=== PATIENT | male | born 1945 | race Caucasian/White ===

== ENCOUNTER 2021-04-23 05:44 | Inpatient (IN) | payer MEDICARE ==
[2021-04-23 06:37] LABS: Hemoglobin 10.9 g/dL (13.5-17.5); Mean Corpuscular HGB CONC 34.2 g/dL (32.0-36.0); Mean Corpuscular Volume 87.9 fl (81.2-95.1); Mean Platelet Volume 9.6 fl (7.4-10.4); Platelet Count 88 10x3/uL (150-450); RBC Distribution Width 16.4 % (11.5-14.5); Red Blood Cell (RBC) Count 3.63 10x6/uL (4.32-5.72); White Blood Cell (WBC) Count 2.5 10x3/uL (3.5-10.5)
[2021-04-23 06:48] LABS: ALT (SGPT) 57 U/L (8-55); AST (SGOT) 147 U/L (5-34); Albumin 3.3 g/dL (3.4-4.8); Alkaline Phosphatase 42 U/L (40-110); Anion Gap 18 mmol/L (10-20); BUN (Urea Nitrogen) 32 mg/dL (8.4-25.7); Bilirubin, Total 0.9 mg/dL (0.2-1.2); Calc. Creatinine Clearance 0 mL/min (70-130); Calcium 8.9 mg/dL (7.8-10.44); Carbon Dioxide 23 mmol/L (23-31); Chloride 93 mmol/L (98-107); Globulin 2.9 g/dL (2.4-3.5); Glucose 95 mg/dL (83-110); Protein, Total 6.2 g/dL (5.8-8.1); Sodium 130 mmol/L (136-145)
[2021-04-23 06:56] LABS: Magnesium 1.4 mg/dL (1.6-2.6)
[2021-04-23 07:24] LABS: CKMB 1.9 ng/mL (0-6.6)
[2021-04-23 07:35] LABS: Band 1 % (5-11); Lymphocytes 19 % (21-51); Monocytes 9 % (0-10); Neutrophil 71 % (42-75)
[2021-04-23 07:36] LABS: Anisocytosis SLIGHT = 6-15 cells (100X) (0-5/hpf); Hypochromia SLIGHT = 6-15 cells (100X) (0-5/hpf); MDiff Complete? YES; Platelet Morphology Comment Appears Decreased
[2021-04-23] MEDS ORDERED: Magnesium 2 GM/50 ML BAG (IN WATER) ONE (08:55)
[2021-04-23] MEDS ORDERED: Polyethylene Glycol 3350 17 GM Packet PO PRN (09:20)
[2021-04-23] MEDS ORDERED: traMADol HCl 50 MG TAB PO PRN (09:20)
[2021-04-23] MEDS ORDERED: Acetaminophen 325 MG TAB PO PRN (09:22)
[2021-04-23] MEDS ORDERED: Lactated Ringer's 1,000 ML IV SCH (09:30)
[2021-04-23 09:34] LABS: Troponin I 2.126 ng/mL (< 0.028)
[2021-04-23 09:54] LABS: SARS-CoV-2 NAA Rapid Test DETECTED (NotDetected)
[2021-04-23 10:57] VITALS: BMI 32.0
[2021-04-23] MEDS ORDERED: Magnesium 2 GM/50 ML 2 GM in Premix Bag 1 BAG IVPB SCH (12:00)
[2021-04-23 12:39] LABS: Troponin I 1.945 ng/mL (< 0.028)
[2021-04-23] MEDS ORDERED: Pioglitazone HCl 15 MG TAB PO SCH (21:00)
[2021-04-23] MEDS: Levothyroxine Sodium 100 MCG TAB PO SCH (22:35)
[2021-04-23] MEDS: Fenofibrate Nanocrystallized 145 MG TAB PO SCH (22:35)
[2021-04-23] MEDS: Lisinopril 10 MG TAB PO SCH (22:36)
[2021-04-23] MEDS: Tamsulosin HCl 0.4 MG CAP PO SCH (22:36)
[2021-04-23] MEDS: Sodium Bicarbonate Tab 325 MG TAB PO SCH (22:36)
[2021-04-23] MEDS: Atorvastatin Calcium 20 MG TAB PO SCH (22:36)
[2021-04-23] MEDS: Apixaban 5 MG TAB PO SCH (22:36)
[2021-04-23] MEDS: Ondansetron PF 4 MG/2 ML Vial IVP PRN (23:10)
[2021-04-24 06:03] LABS: Anion Gap 14 mmol/L (10-20); BUN (Urea Nitrogen) 32 mg/dL (8.4-25.7); Calc. Creatinine Clearance 61 mL/min (70-130); Calcium 8.3 mg/dL (7.8-10.44); Carbon Dioxide 23 mmol/L (23-31); Chloride 97 mmol/L (98-107); Glucose 107 mg/dL (83-110); Magnesium 2.2 mg/dL (1.6-2.6); Potassium 3.3 mmol/L (3.5-5.1); Sodium 131 mmol/L (136-145)
[2021-04-24 06:32] LABS: #Monocytes 0.4 10x3/uL (0.0-1.1); #Neutrophils 2.1 10x3/uL (1.5-8.4); %Lymphocytes 23.5 % (18.0-47.0); %Monocytes 13.5 % (0.0-10.0); %Neutrophils 62.7 % (40.0-75.0); Hemoglobin 10.6 g/dL (13.5-17.5); Mean Corpuscular HGB CONC 34.5 g/dL (32.0-36.0); Mean Corpuscular Hemoglobin 30.3 pg (27.0-33.0); Mean Corpuscular Volume 87.7 fl (81.2-95.1); Mean Platelet Volume 9.9 fl (7.4-10.4); Platelet Count 95 10x3/uL (150-450); RBC Distribution Width 16.3 % (11.5-14.5); White Blood Cell (WBC) Count 3.3 10x3/uL (3.5-10.5)
[2021-04-24 06:38] LABS: Bilirubin Neg (Negative); Blood, Urine 250 (Negative); Clarity Cloudy (Clear); Glucose, Urine (Dipstick) Normal (Negative); Ketone, Urine Negative (Negative); Leukocyte 100 (Negative); Nitrite Positive (Negative); Protein, Urine (Dipstick) 30 mg/dl (Neg-Trace); Urobilinogen Normal mg/dL (Less than 2)
[2021-04-24 06:47] LABS: RBC/HPF Greater than 50 HPF (0-3)
[2021-04-24 06:49] LABS: Bacteria/HPF 4+ HPF (None Seen); Mucous/LPF 2+ LPF (<2+); Squamous Epithelial 0-3 HPF (0-3)
[2021-04-24] MEDS ORDERED: Loperamide HCl 2 MG CAP PO PRN (08:23)
[2021-04-24] MEDS ORDERED: Potassium Chloride 20 MEQ TAB PO SCH (08:30)
[2021-04-24] MEDS: cefTRIAXone\\ROCEPHIN 1 GM in Sodium Chloride 0.9% 100 ML IVPB SCH (09:21)
[2021-04-24] MEDS: Sodium Bicarbonate Tab 325 MG TAB PO SCH ×2 (09:22→21:48)
[2021-04-24] MEDS: Apixaban 5 MG TAB PO SCH ×2 (09:22→21:47)
[2021-04-24] MEDS: Cyanocobalamin (Vitamin B-12) 1,000 MCG TAB PO SCH (09:22)
[2021-04-24] MEDS: Atorvastatin Calcium 20 MG TAB PO SCH (21:47)
[2021-04-24] MEDS: Levothyroxine Sodium 100 MCG TAB PO SCH (21:47)
[2021-04-24] MEDS: Tamsulosin HCl 0.4 MG CAP PO SCH (21:47)
[2021-04-24] MEDS: Lisinopril 10 MG TAB PO SCH (21:47)
[2021-04-24] MEDS: Fenofibrate Nanocrystallized 145 MG TAB PO SCH (21:49)
[2021-04-25] MEDS ORDERED: Potassium Chloride 20 MEQ TAB PO SCH (08:00)
[2021-04-25 08:16] LABS: ALT (SGPT) 47 U/L (8-55); AST (SGOT) 110 U/L (5-34); Albumin 2.8 g/dL (3.4-4.8); Alkaline Phosphatase 37 U/L (40-110); Anion Gap 14 mmol/L (10-20); BUN (Urea Nitrogen) 38 mg/dL (8.4-25.7); Bilirubin, Total 0.5 mg/dL (0.2-1.2); Calc. Creatinine Clearance 56 mL/min (70-130); Calcium 8.3 mg/dL (7.8-10.44); Carbon Dioxide 23 mmol/L (23-31); Chloride 97 mmol/L (98-107); Globulin 2.5 g/dL (2.4-3.5); Glucose 90 mg/dL (83-110); Potassium 4.3 mmol/L (3.5-5.1); Protein, Total 5.3 g/dL (5.8-8.1); Sodium 130 mmol/L (136-145)
[2021-04-25 08:27] LABS: #Monocytes 0.6 10x3/uL (0.0-1.1); #Neutrophils 2.7 10x3/uL (1.5-8.4); %Basophils 0.2 % (0.0-2.0); %Eosinophils 0.7 % (0.0-6.0); %Lymphocytes 25.5 % (18.0-47.0); %Monocytes 13.1 % (0.0-10.0); %Neutrophils 59.8 % (40.0-75.0); Hemoglobin 10.5 g/dL (13.5-17.5); Mean Corpuscular Hemoglobin 30.1 pg (27.0-33.0); Mean Platelet Volume 9.9 fl (7.4-10.4); Platelet Count 91 10x3/uL (150-450); RBC Distribution Width 16.6 % (11.5-14.5); Red Blood Cell (RBC) Count 3.49 10x6/uL (4.32-5.72); White Blood Cell (WBC) Count 4.4 10x3/uL (3.5-10.5)
[2021-04-25] MEDS: Sodium Bicarbonate Tab 325 MG TAB PO SCH ×2 (08:51→21:21)
[2021-04-25] MEDS: Apixaban 5 MG TAB PO SCH ×2 (08:52→21:22)
[2021-04-25] MEDS: Cyanocobalamin (Vitamin B-12) 1,000 MCG TAB PO SCH (08:52)
[2021-04-25] MEDS: cefTRIAXone\\ROCEPHIN 1 GM in Sodium Chloride 0.9% 100 ML IVPB SCH (08:52)
[2021-04-25] MEDS: Sodium Chloride 0.9% 1,000 ML IV SCH (08:52)
[2021-04-25] MEDS: Lisinopril 10 MG TAB PO SCH (21:21)
[2021-04-25] MEDS: Tamsulosin HCl 0.4 MG CAP PO SCH (21:22)
[2021-04-25] MEDS: Fenofibrate Nanocrystallized 145 MG TAB PO SCH (21:22)
[2021-04-25] MEDS: Atorvastatin Calcium 20 MG TAB PO SCH (21:22)
[2021-04-25] MEDS: Levothyroxine Sodium 100 MCG TAB PO SCH (21:23)
[2021-04-26] MEDS: Sodium Chloride 0.9% 1,000 ML IV SCH (06:23)
[2021-04-26] MEDS: Cyanocobalamin (Vitamin B-12) 1,000 MCG TAB PO SCH (08:11)
[2021-04-26] MEDS: Apixaban 5 MG TAB PO SCH ×2 (08:11→21:29)
[2021-04-26] MEDS: Sodium Bicarbonate Tab 325 MG TAB PO SCH ×2 (08:11→21:29)
[2021-04-26] MEDS: cefTRIAXone\\ROCEPHIN 1 GM in Sodium Chloride 0.9% 100 ML IVPB SCH (08:12)
[2021-04-26 08:54] LABS: #Monocytes 0.4 10x3/uL (0.0-1.1); #Neutrophils 2.2 10x3/uL (1.5-8.4); %Eosinophils 1.1 % (0.0-6.0); %Lymphocytes 26.2 % (18.0-47.0); %Monocytes 10.5 % (0.0-10.0); %Neutrophils 61.9 % (40.0-75.0); Hemoglobin 9.9 g/dL (13.5-17.5); Mean Corpuscular HGB CONC 33.6 g/dL (32.0-36.0); Mean Corpuscular Hemoglobin 29.9 pg (27.0-33.0); Mean Corpuscular Volume 89.1 fl (81.2-95.1); Mean Platelet Volume 9.3 fl (7.4-10.4); Platelet Count 104 10x3/uL (150-450); RBC Distribution Width 16.8 % (11.5-14.5); Red Blood Cell (RBC) Count 3.31 10x6/uL (4.32-5.72); White Blood Cell (WBC) Count 3.6 10x3/uL (3.5-10.5)
[2021-04-26 09:05] LABS: Anion Gap 12 mmol/L (10-20); BUN (Urea Nitrogen) 28 mg/dL (8.4-25.7); Calc. Creatinine Clearance 68 mL/min (70-130); Calcium 8.2 mg/dL (7.8-10.44); Carbon Dioxide 22 mmol/L (23-31); Chloride 102 mmol/L (98-107); Glucose 91 mg/dL (83-110); Magnesium 1.7 mg/dL (1.6-2.6); Potassium 4.5 mmol/L (3.5-5.1); Sodium 131 mmol/L (136-145)
[2021-04-26] MEDS: Levothyroxine Sodium 100 MCG TAB PO SCH (21:29)
[2021-04-26] MEDS: Atorvastatin Calcium 20 MG TAB PO SCH (21:29)
[2021-04-26] MEDS: Tamsulosin HCl 0.4 MG CAP PO SCH (21:29)
[2021-04-26] MEDS: Lisinopril 5 MG TAB PO SCH (21:30)
[2021-04-26] MEDS: Fenofibrate Nanocrystallized 145 MG TAB PO SCH (21:30)
[2021-04-27 05:10] LABS: #Eosinphils 0.1 10x3/uL (0.0-0.5); #Monocytes 0.4 10x3/uL (0.0-1.1); %Basophils 0.3 % (0.0-2.0); %Eosinophils 2.4 % (0.0-6.0); %Lymphocytes 26.8 % (18.0-47.0); %Monocytes 10.4 % (0.0-10.0); %Neutrophils 59.5 % (40.0-75.0); Hemoglobin 10.9 g/dL (13.5-17.5); Mean Corpuscular HGB CONC 34.4 g/dL (32.0-36.0); Mean Corpuscular Hemoglobin 29.8 pg (27.0-33.0); Mean Corpuscular Volume 86.6 fl (81.2-95.1); Mean Platelet Volume 9.7 fl (7.4-10.4); Platelet Count 125 10x3/uL (150-450); RBC Distribution Width 16.6 % (11.5-14.5); Red Blood Cell (RBC) Count 3.66 10x6/uL (4.32-5.72); White Blood Cell (WBC) Count 3.4 10x3/uL (3.5-10.5)
[2021-04-27 05:13] LABS: Anion Gap 14 mmol/L (10-20); BUN (Urea Nitrogen) 19 mg/dL (8.4-25.7); Calc. Creatinine Clearance 78 mL/min (70-130); Calcium 8.6 mg/dL (7.8-10.44); Carbon Dioxide 21 mmol/L (23-31); Chloride 104 mmol/L (98-107); Glucose 93 mg/dL (83-110); Magnesium 1.6 mg/dL (1.6-2.6); Potassium 5.2 mmol/L (3.5-5.1); Sodium 134 mmol/L (136-145)
[2021-04-27] MEDS ORDERED: Sodium Chloride 0.9% 500 ML IV SCH (07:30)
[2021-04-27] MEDS: Sodium Bicarbonate Tab 325 MG TAB PO SCH ×2 (07:46→21:53)
[2021-04-27] MEDS: cefTRIAXone\\ROCEPHIN 1 GM in Sodium Chloride 0.9% 100 ML IVPB SCH (07:47)
[2021-04-27] MEDS: Apixaban 5 MG TAB PO SCH ×2 (07:47→21:53)
[2021-04-27] MEDS: Cyanocobalamin (Vitamin B-12) 1,000 MCG TAB PO SCH (07:47)
[2021-04-27 08:36] LABS: Potassium 4.4 mmol/L (3.5-5.1)
[2021-04-27] MEDS: Ondansetron PF 4 MG/2 ML Vial IVP PRN (18:05)
[2021-04-27] MEDS: Metoprolol Tartrate 5 MG/5 ML VIAL IVP PRN (18:05)
[2021-04-27 19:10] LABS: Anion Gap 15 mmol/L (10-20); BUN (Urea Nitrogen) 17 mg/dL (8.4-25.7); Calc. Creatinine Clearance 86 mL/min (70-130); Calcium 8.3 mg/dL (7.8-10.44); Carbon Dioxide 18 mmol/L (23-31); Chloride 101 mmol/L (98-107); Glucose 98 mg/dL (83-110); Potassium 5.6 mmol/L (3.5-5.1); Sodium 128 mmol/L (136-145)
[2021-04-27] MEDS: Atorvastatin Calcium 20 MG TAB PO SCH (21:53)
[2021-04-27] MEDS: Fenofibrate Nanocrystallized 145 MG TAB PO SCH (21:53)
[2021-04-27] MEDS: Tamsulosin HCl 0.4 MG CAP PO SCH (21:53)
[2021-04-27] MEDS: Lisinopril 5 MG TAB PO SCH (21:55)
[2021-04-28] MEDS: Metoprolol Tartrate 5 MG/5 ML VIAL IVP PRN ×3 (00:54→15:29)
[2021-04-28] MEDS: Levothyroxine Sodium 100 MCG TAB PO SCH ×2 (01:00→05:38)
[2021-04-28 06:46] LABS: #Eosinphils 0.1 10x3/uL (0.0-0.5); #Monocytes 0.5 10x3/uL (0.0-1.1); #Neutrophils 2.5 10x3/uL (1.5-8.4); %Basophils 0.2 % (0.0-2.0); %Eosinophils 1.2 % (0.0-6.0); %Lymphocytes 26.3 % (18.0-47.0); %Monocytes 12.9 % (0.0-10.0); %Neutrophils 58.9 % (40.0-75.0); Hemoglobin 11.1 g/dL (13.5-17.5); Mean Corpuscular HGB CONC 34.6 g/dL (32.0-36.0); Mean Corpuscular Hemoglobin 29.8 pg (27.0-33.0); Mean Corpuscular Volume 86.1 fl (81.2-95.1); Mean Platelet Volume 9.3 fl (7.4-10.4); Platelet Count 148 10x3/uL (150-450); RBC Distribution Width 16.1 % (11.5-14.5); Red Blood Cell (RBC) Count 3.73 10x6/uL (4.32-5.72); White Blood Cell (WBC) Count 4.2 10x3/uL (3.5-10.5)
[2021-04-28 06:48] LABS: Anion Gap 15 mmol/L (10-20); BUN (Urea Nitrogen) 17 mg/dL (8.4-25.7); Calc. Creatinine Clearance 76 mL/min (70-130); Calcium 8.3 mg/dL (7.8-10.44); Carbon Dioxide 19 mmol/L (23-31); Chloride 100 mmol/L (98-107); Glucose 94 mg/dL (83-110); Magnesium 1.4 mg/dL (1.6-2.6); Potassium 4.5 mmol/L (3.5-5.1); Sodium 129 mmol/L (136-145)
[2021-04-28] MEDS: Sodium Bicarbonate Tab 325 MG TAB PO SCH ×2 (08:09→22:00)
[2021-04-28] MEDS: Cyanocobalamin (Vitamin B-12) 1,000 MCG TAB PO SCH (08:09)
[2021-04-28] MEDS: Apixaban 5 MG TAB PO SCH ×2 (08:10→22:15)
[2021-04-28] MEDS: cefTRIAXone\\ROCEPHIN 1 GM in Sodium Chloride 0.9% 100 ML IVPB SCH (08:10)
[2021-04-28 12:25] LABS: Hemoglobin 11.7 g/dL (13.5-17.5)
[2021-04-28] MEDS ORDERED: Magnesium 2 GM/50 ML 2 GM in Premix Bag 1 BAG IVPB SCH (14:45)
[2021-04-28] MEDS: Sodium Chloride 0.9% 1,000 ML IV SCH (14:56)
[2021-04-28] MEDS: Lisinopril 5 MG TAB PO SCH (22:00)
[2021-04-28] MEDS: Tamsulosin HCl 0.4 MG CAP PO SCH (22:00)
[2021-04-28] MEDS: Atorvastatin Calcium 20 MG TAB PO SCH (22:00)
[2021-04-28] MEDS: Fenofibrate Nanocrystallized 145 MG TAB PO SCH (22:00)
[2021-04-29] MEDS: Sodium Chloride 0.9% 1,000 ML IV SCH ×2 (04:50→17:14)
[2021-04-29 05:43] LABS: #Eosinphils 0.1 10x3/uL (0.0-0.5); #Monocytes 0.5 10x3/uL (0.0-1.1); #Neutrophils 2.6 10x3/uL (1.5-8.4); %Basophils 0.2 % (0.0-2.0); %Eosinophils 1.2 % (0.0-6.0); %Lymphocytes 22.9 % (18.0-47.0); %Monocytes 12.8 % (0.0-10.0); Hemoglobin 10.8 g/dL (13.5-17.5); Mean Corpuscular Hemoglobin 29.9 pg (27.0-33.0); Mean Corpuscular Volume 85.6 fl (81.2-95.1); Mean Platelet Volume 9.2 fl (7.4-10.4); Platelet Count 157 10x3/uL (150-450); RBC Distribution Width 16.1 % (11.5-14.5); Red Blood Cell (RBC) Count 3.61 10x6/uL (4.32-5.72); White Blood Cell (WBC) Count 4.2 10x3/uL (3.5-10.5)
[2021-04-29 06:03] LABS: Anion Gap 13 mmol/L (10-20); BUN (Urea Nitrogen) 16 mg/dL (8.4-25.7); Calc. Creatinine Clearance 74 mL/min (70-130); Calcium 8.1 mg/dL (7.8-10.44); Carbon Dioxide 20 mmol/L (23-31); Chloride 100 mmol/L (98-107); Glucose 91 mg/dL (83-110); Potassium 4.6 mmol/L (3.5-5.1); Sodium 128 mmol/L (136-145)
[2021-04-29] MEDS: Levothyroxine Sodium 100 MCG TAB PO SCH (06:34)
[2021-04-29] MEDS: Cyanocobalamin (Vitamin B-12) 1,000 MCG TAB PO SCH (08:48)
[2021-04-29] MEDS: Sodium Bicarbonate Tab 325 MG TAB PO SCH ×2 (08:48→21:18)
[2021-04-29] MEDS: cefTRIAXone\\ROCEPHIN 1 GM in Sodium Chloride 0.9% 100 ML IVPB SCH (08:59)
[2021-04-29] MEDS: Apixaban 5 MG TAB PO SCH ×2 (09:43→21:22)
[2021-04-29] MEDS: Fenofibrate Nanocrystallized 145 MG TAB PO SCH (20:20)
[2021-04-29] MEDS: Tamsulosin HCl 0.4 MG CAP PO SCH (21:17)
[2021-04-29] MEDS: Atorvastatin Calcium 20 MG TAB PO SCH (21:17)
[2021-04-29] MEDS: Lisinopril 5 MG TAB PO SCH (21:20)
[2021-04-30] MEDS: Metoprolol Tartrate 5 MG/5 ML VIAL IVP PRN (04:53)
[2021-04-30] MEDS: Levothyroxine Sodium 100 MCG TAB PO SCH (04:54)
[2021-04-30] MEDS: Sodium Chloride 0.9% 1,000 ML IV SCH (04:54)
[2021-04-30 07:02] LABS: #Eosinphils 0.1 10x3/uL (0.0-0.5); #Monocytes 0.6 10x3/uL (0.0-1.1); #Neutrophils 2.9 10x3/uL (1.5-8.4); %Basophils 0.2 % (0.0-2.0); %Eosinophils 2.4 % (0.0-6.0); %Lymphocytes 19.9 % (18.0-47.0); %Monocytes 13.5 % (0.0-10.0); %Neutrophils 62.9 % (40.0-75.0); Hemoglobin 10.5 g/dL (13.5-17.5); Mean Corpuscular HGB CONC 34.7 g/dL (32.0-36.0); Mean Corpuscular Hemoglobin 29.7 pg (27.0-33.0); Mean Corpuscular Volume 85.8 fl (81.2-95.1); Platelet Count 178 10x3/uL (150-450); RBC Distribution Width 16.5 % (11.5-14.5); Red Blood Cell (RBC) Count 3.53 10x6/uL (4.32-5.72); White Blood Cell (WBC) Count 4.6 10x3/uL (3.5-10.5)
[2021-04-30 07:05] LABS: Anion Gap 13 mmol/L (10-20); BUN (Urea Nitrogen) 15 mg/dL (8.4-25.7); Calc. Creatinine Clearance 81 mL/min (70-130); Calcium 8.1 mg/dL (7.8-10.44); Carbon Dioxide 20 mmol/L (23-31); Chloride 103 mmol/L (98-107); Glucose 89 mg/dL (83-110); Potassium 4.7 mmol/L (3.5-5.1); Sodium 131 mmol/L (136-145)
[2021-04-30] MEDS: Apixaban 5 MG TAB PO SCH (08:32)
[2021-04-30] MEDS: Sodium Bicarbonate Tab 325 MG TAB PO SCH ×2 (08:33→20:20)
[2021-04-30] MEDS: Cyanocobalamin (Vitamin B-12) 1,000 MCG TAB PO SCH (08:33)
[2021-04-30] MEDS: cefTRIAXone\\ROCEPHIN 1 GM in Sodium Chloride 0.9% 100 ML IVPB SCH (08:39)
[2021-04-30] MEDS: Atorvastatin Calcium 20 MG TAB PO SCH (20:19)
[2021-04-30] MEDS: Tamsulosin HCl 0.4 MG CAP PO SCH (20:20)
[2021-04-30] MEDS: Fenofibrate Nanocrystallized 145 MG TAB PO SCH (20:21)
[2021-04-30] MEDS ORDERED: Apixaban 2.5 MG TAB PO SCH (21:00)
[2021-05-01 06:11] LABS: #Eosinphils 0.1 10x3/uL (0.0-0.5); #Monocytes 0.6 10x3/uL (0.0-1.1); #Neutrophils 2.6 10x3/uL (1.5-8.4); %Basophils 0.2 % (0.0-2.0); %Eosinophils 2.9 % (0.0-6.0); %Lymphocytes 24.4 % (18.0-47.0); %Monocytes 13.5 % (0.0-10.0); %Neutrophils 57.7 % (40.0-75.0); Hemoglobin 10.7 g/dL (13.5-17.5); Mean Corpuscular HGB CONC 34.9 g/dL (32.0-36.0); Mean Corpuscular Hemoglobin 29.9 pg (27.0-33.0); Mean Corpuscular Volume 85.8 fl (81.2-95.1); Mean Platelet Volume 8.9 fl (7.4-10.4); Platelet Count 199 10x3/uL (150-450); Red Blood Cell (RBC) Count 3.58 10x6/uL (4.32-5.72); White Blood Cell (WBC) Count 4.5 10x3/uL (3.5-10.5)
[2021-05-01 06:18] LABS: Anion Gap 15 mmol/L (10-20); BUN (Urea Nitrogen) 12 mg/dL (8.4-25.7); Calc. Creatinine Clearance 93 mL/min (70-130); Calcium 8.2 mg/dL (7.8-10.44); Carbon Dioxide 18 mmol/L (23-31); Chloride 103 mmol/L (98-107); Glucose 83 mg/dL (83-110); Potassium 4.4 mmol/L (3.5-5.1); Sodium 132 mmol/L (136-145)
[2021-05-01] MEDS: Levothyroxine Sodium 100 MCG TAB PO SCH (06:50)
[2021-05-01] MEDS: Sodium Chloride 0.9% 1,000 ML IV SCH ×2 (06:50→17:19)
[2021-05-01] MEDS ORDERED: Senokot 8.6 MG TAB PO PRN (07:44)
[2021-05-01] MEDS: Sodium Bicarbonate Tab 325 MG TAB PO SCH ×2 (08:21→21:39)
[2021-05-01] MEDS: Cyanocobalamin (Vitamin B-12) 1,000 MCG TAB PO SCH (08:21)
[2021-05-01] MEDS: Atorvastatin Calcium 20 MG TAB PO SCH (21:39)
[2021-05-01] MEDS: Tamsulosin HCl 0.4 MG CAP PO SCH (21:39)
[2021-05-01] MEDS: Fenofibrate Nanocrystallized 145 MG TAB PO SCH (21:40)
[2021-05-01] MEDS: Metoprolol Tartrate 5 MG/5 ML VIAL IVP PRN (21:40)
[2021-05-02 04:21] LABS: Anion Gap 14 mmol/L (10-20); BUN (Urea Nitrogen) 13 mg/dL (8.4-25.7); Calc. Creatinine Clearance 95 mL/min (70-130); Calcium 8.1 mg/dL (7.8-10.44); Carbon Dioxide 17 mmol/L (23-31); Chloride 103 mmol/L (98-107); Glucose 104 mg/dL (83-110); Potassium 4.5 mmol/L (3.5-5.1); Sodium 129 mmol/L (136-145)
[2021-05-02] MEDS: Sodium Chloride 0.9% 1,000 ML IV SCH (05:20)
[2021-05-02] MEDS: Levothyroxine Sodium 100 MCG TAB PO SCH (05:20)
[2021-05-02] MEDS: Metoprolol Tartrate 5 MG/5 ML VIAL IVP PRN ×3 (06:42→18:33)
[2021-05-02 09:16] LABS: #Eosinphils 0.1 10x3/uL (0.0-0.5); #Monocytes 0.6 10x3/uL (0.0-1.1); #Neutrophils 3.3 10x3/uL (1.5-8.4); %Basophils 0.2 % (0.0-2.0); %Eosinophils 1.6 % (0.0-6.0); %Lymphocytes 18.4 % (18.0-47.0); %Monocytes 11.7 % (0.0-10.0); %Neutrophils 67.1 % (40.0-75.0); Hemoglobin 10.7 g/dL (13.5-17.5); Mean Corpuscular Hemoglobin 29.3 pg (27.0-33.0); Mean Corpuscular Volume 86.3 fl (81.2-95.1); Mean Platelet Volume 8.9 fl (7.4-10.4); Platelet Count 227 10x3/uL (150-450); Red Blood Cell (RBC) Count 3.65 10x6/uL (4.32-5.72)
[2021-05-02] MEDS: Polyethylene Glycol 3350 17 GM Packet PO SCH (09:55)
[2021-05-02] MEDS: Finasteride 5 MG TAB PO SCH (09:55)
[2021-05-02] MEDS: Sodium Bicarbonate Tab 325 MG TAB PO SCH ×2 (09:55→22:08)
[2021-05-02] MEDS: Cyanocobalamin (Vitamin B-12) 1,000 MCG TAB PO SCH (09:55)
[2021-05-02] MEDS: Fenofibrate Nanocrystallized 145 MG TAB PO SCH (22:07)
[2021-05-02] MEDS: Atorvastatin Calcium 20 MG TAB PO SCH (22:07)
[2021-05-02] MEDS: Tamsulosin HCl 0.4 MG CAP PO SCH (22:08)
[2021-05-02 23:14] LABS: Creatinine, Urine 56.54 mg/dL (63-166)
[2021-05-03 04:30] LABS: #Eosinphils 0.1 10x3/uL (0.0-0.5); #Monocytes 0.6 10x3/uL (0.0-1.1); #Neutrophils 3.8 10x3/uL (1.5-8.4); %Basophils 0.4 % (0.0-2.0); %Eosinophils 2.1 % (0.0-6.0); %Lymphocytes 18.5 % (18.0-47.0); %Monocytes 11.1 % (0.0-10.0); %Neutrophils 66.8 % (40.0-75.0); Anion Gap 14 mmol/L (10-20); BUN (Urea Nitrogen) 13 mg/dL (8.4-25.7); Calc. Creatinine Clearance 92 mL/min (70-130); Calcium 8.5 mg/dL (7.8-10.44); Carbon Dioxide 18 mmol/L (23-31); Chloride 99 mmol/L (98-107); Glucose 89 mg/dL (83-110); Hemoglobin 11.3 g/dL (13.5-17.5); Mean Corpuscular HGB CONC 34.8 g/dL (32.0-36.0); Mean Corpuscular Hemoglobin 29.6 pg (27.0-33.0); Mean Corpuscular Volume 85.1 fl (81.2-95.1); Mean Platelet Volume 9.1 fl (7.4-10.4); Platelet Count 246 10x3/uL (150-450); Red Blood Cell (RBC) Count 3.82 10x6/uL (4.32-5.72); Sodium 127 mmol/L (136-145); White Blood Cell (WBC) Count 5.7 10x3/uL (3.5-10.5)
[2021-05-03] MEDS: Levothyroxine Sodium 100 MCG TAB PO SCH (05:25)
[2021-05-03] MEDS: Metoprolol Tartrate 5 MG/5 ML VIAL IVP PRN (05:25)
[2021-05-03 08:40] LABS: Magnesium 1.3 mg/dL (1.6-2.6)
[2021-05-03] MEDS: Flecainide 50 MG TAB PO SCH ×2 (09:40→22:18)
[2021-05-03] MEDS: Cyanocobalamin (Vitamin B-12) 1,000 MCG TAB PO SCH (09:40)
[2021-05-03] MEDS: Sodium Bicarbonate Tab 325 MG TAB PO SCH ×2 (09:40→22:19)
[2021-05-03] MEDS: Finasteride 5 MG TAB PO SCH (09:40)
[2021-05-03] MEDS: Polyethylene Glycol 3350 17 GM Packet PO SCH (09:41)
[2021-05-03] MEDS: Apixaban 2.5 MG TAB PO SCH ×2 (09:41→22:19)
[2021-05-03] MEDS: Magnesium 2 GM/50 ML 2 GM in Premix Bag 1 BAG IVPB SCH ×2 (13:27→16:22)
[2021-05-03] MEDS ORDERED: Magnesium Sulfate 2 GM in Sodium Chloride 0.9% 100 ML IVPB SCH (19:00)
[2021-05-03] MEDS ORDERED: Sodium Chloride 1 GM TAB PO SCH (21:00)
[2021-05-03] MEDS: Fenofibrate Nanocrystallized 145 MG TAB PO SCH (22:19)
[2021-05-03] MEDS: Atorvastatin Calcium 20 MG TAB PO SCH (22:19)
[2021-05-03] MEDS: Tamsulosin HCl 0.4 MG CAP PO SCH (22:19)
[2021-05-04 04:35] LABS: Albumin 2.7 g/dL (3.4-4.8); Anion Gap 13 mmol/L (10-20); BUN (Urea Nitrogen) 17 mg/dL (8.4-25.7); BUN/Creatinine Ratio 16.04; Calc. Creatinine Clearance 81 mL/min (70-130); Calcium 8.5 mg/dL (7.8-10.44); Carbon Dioxide 18 mmol/L (23-31); Chloride 98 mmol/L (98-107); Glucose 109 mg/dL (83-110); Magnesium 1.9 mg/dL (1.6-2.6); Sodium 125 mmol/L (136-145)
[2021-05-04 04:42] LABS: Phosphorus 1.6 mg/dL (2.3-4.7)
[2021-05-04] MEDS: Levothyroxine Sodium 100 MCG TAB PO SCH (05:24)
[2021-05-04] MEDS: Apixaban 2.5 MG TAB PO SCH ×2 (10:29→21:57)
[2021-05-04] MEDS: Sodium Bicarbonate Tab 325 MG TAB PO SCH ×4 (10:29→21:58)
[2021-05-04] MEDS: Cyanocobalamin (Vitamin B-12) 1,000 MCG TAB PO SCH (10:30)
[2021-05-04] MEDS: Flecainide 50 MG TAB PO SCH ×2 (10:30→21:57)
[2021-05-04] MEDS: PHOS-NAK 1 PKT PACK PO SCH ×4 (10:30→21:58)
[2021-05-04] MEDS: Polyethylene Glycol 3350 17 GM Packet PO SCH (10:30)
[2021-05-04] MEDS: Sodium Chloride 1 GM TAB PO SCH ×4 (10:30→22:01)
[2021-05-04] MEDS: Finasteride 5 MG TAB PO SCH (10:30)
[2021-05-04 15:38] LABS: Anion Gap 12 mmol/L (10-20); BUN (Urea Nitrogen) 17 mg/dL (8.4-25.7); Calc. Creatinine Clearance 75 mL/min (70-130); Calcium 8.7 mg/dL (7.8-10.44); Carbon Dioxide 19 mmol/L (23-31); Chloride 99 mmol/L (98-107); Glucose 118 mg/dL (83-110); Potassium 4.4 mmol/L (3.5-5.1); Sodium 126 mmol/L (136-145)
[2021-05-04] MEDS: Atorvastatin Calcium 20 MG TAB PO SCH (21:57)
[2021-05-04] MEDS: Tamsulosin HCl 0.4 MG CAP PO SCH (21:58)
[2021-05-04] MEDS: Fenofibrate Nanocrystallized 145 MG TAB PO SCH (22:00)
[2021-05-05] MEDS: Levothyroxine Sodium 100 MCG TAB PO SCH (05:29)
[2021-05-05 07:57] LABS: Albumin 2.7 g/dL (3.4-4.8); Anion Gap 15 mmol/L (10-20); BUN (Urea Nitrogen) 16 mg/dL (8.4-25.7); BUN/Creatinine Ratio 15.53; Calc. Creatinine Clearance 84 mL/min (70-130); Calcium 8.7 mg/dL (7.8-10.44); Carbon Dioxide 20 mmol/L (23-31); Chloride 99 mmol/L (98-107); Glucose 85 mg/dL (83-110); Magnesium 1.6 mg/dL (1.6-2.6); Phosphorus 2.2 mg/dL (2.3-4.7); Potassium 4.5 mmol/L (3.5-5.1); Sodium 129 mmol/L (136-145)
[2021-05-05] MEDS: Sodium Bicarbonate Tab 325 MG TAB PO SCH ×3 (08:39→20:39)
[2021-05-05] MEDS: Folic Acid 1 MG TAB PO SCH (08:40)
[2021-05-05] MEDS: Sodium Chloride 1 GM TAB PO SCH ×3 (08:40→20:39)
[2021-05-05] MEDS: Flecainide 50 MG TAB PO SCH ×2 (08:40→20:39)
[2021-05-05] MEDS: Polyethylene Glycol 3350 17 GM Packet PO SCH (08:40)
[2021-05-05] MEDS: Apixaban 2.5 MG TAB PO SCH ×2 (08:40→20:39)
[2021-05-05] MEDS: Cyanocobalamin (Vitamin B-12) 1,000 MCG TAB PO SCH (08:40)
[2021-05-05] MEDS: Finasteride 5 MG TAB PO SCH (08:46)
[2021-05-05] MEDS ORDERED: Magnesium Sulfate 4 GM in Sodium Chloride 0.9% 250 ML 250 ML IVPB SCH (10:00)
[2021-05-05] MEDS: Atorvastatin Calcium 20 MG TAB PO SCH (20:39)
[2021-05-05] MEDS: Fenofibrate Nanocrystallized 145 MG TAB PO SCH (20:39)
[2021-05-05] MEDS: Tamsulosin HCl 0.4 MG CAP PO SCH (20:39)
[2021-05-06 04:46] LABS: #Eosinphils 0.1 10x3/uL (0.0-0.5); #Monocytes 0.6 10x3/uL (0.0-1.1); %Basophils 0.6 % (0.0-2.0); %Eosinophils 1.7 % (0.0-6.0); %Lymphocytes 21.2 % (18.0-47.0); %Neutrophils 62.9 % (40.0-75.0); Hemoglobin 11.1 g/dL (13.5-17.5); Mean Corpuscular HGB CONC 34.6 g/dL (32.0-36.0); Mean Corpuscular Hemoglobin 29.8 pg (27.0-33.0); Mean Corpuscular Volume 86.1 fl (81.2-95.1); Platelet Count 229 10x3/uL (150-450); RBC Distribution Width 16.1 % (11.5-14.5); Red Blood Cell (RBC) Count 3.73 10x6/uL (4.32-5.72); White Blood Cell (WBC) Count 4.8 10x3/uL (3.5-10.5)
[2021-05-06 04:56] LABS: Albumin 2.6 g/dL (3.4-4.8); Anion Gap 15 mmol/L (10-20); BUN (Urea Nitrogen) 19 mg/dL (8.4-25.7); BUN/Creatinine Ratio 16.38; Calc. Creatinine Clearance 74 mL/min (70-130); Calcium 8.7 mg/dL (7.8-10.44); Carbon Dioxide 20 mmol/L (23-31); Chloride 101 mmol/L (98-107); Glucose 101 mg/dL (83-110); Magnesium 2.1 mg/dL (1.6-2.6); Phosphorus 2.4 mg/dL (2.3-4.7); Potassium 4.5 mmol/L (3.5-5.1); Sodium 131 mmol/L (136-145)
[2021-05-06] MEDS: Levothyroxine Sodium 100 MCG TAB PO SCH (05:57)
[2021-05-06] MEDS: Sodium Bicarbonate Tab 325 MG TAB PO SCH ×3 (10:06→21:53)
[2021-05-06] MEDS: Folic Acid 1 MG TAB PO SCH (10:06)
[2021-05-06] MEDS: Finasteride 5 MG TAB PO SCH (10:06)
[2021-05-06] MEDS: Flecainide 50 MG TAB PO SCH ×2 (10:06→21:53)
[2021-05-06] MEDS: Polyethylene Glycol 3350 17 GM Packet PO SCH ×2 (10:07→10:23)
[2021-05-06] MEDS: Cyanocobalamin (Vitamin B-12) 1,000 MCG TAB PO SCH (10:07)
[2021-05-06] MEDS: Apixaban 2.5 MG TAB PO SCH ×2 (10:07→21:53)
[2021-05-06] MEDS: Sodium Chloride 1 GM TAB PO SCH ×3 (10:07→21:53)
[2021-05-06] MEDS: Atorvastatin Calcium 20 MG TAB PO SCH (21:52)
[2021-05-06] MEDS: Fenofibrate Nanocrystallized 145 MG TAB PO SCH (21:53)
[2021-05-07 04:42] LABS: Albumin 2.5 g/dL (3.4-4.8); Anion Gap 12 mmol/L (10-20); BUN (Urea Nitrogen) 23 mg/dL (8.4-25.7); BUN/Creatinine Ratio 19.33; Calc. Creatinine Clearance 72 mL/min (70-130); Calcium 8.5 mg/dL (7.8-10.44); Carbon Dioxide 24 mmol/L (23-31); Chloride 101 mmol/L (98-107); Glucose 118 mg/dL (83-110); Magnesium 1.6 mg/dL (1.6-2.6); Phosphorus 2.3 mg/dL (2.3-4.7); Potassium 4.5 mmol/L (3.5-5.1); Sodium 132 mmol/L (136-145)
[2021-05-07] MEDS: Levothyroxine Sodium 100 MCG TAB PO SCH (06:34)
[2021-05-07] MEDS: Magnesium 2 GM/50 ML 2 GM in Premix Bag 1 BAG IVPB SCH ×2 (06:35→09:00)
[2021-05-07] MEDS: Polyethylene Glycol 3350 17 GM Packet PO SCH (08:59)
[2021-05-07] MEDS: Magnesium Oxide 400 MG TAB PO SCH ×2 (09:01→21:01)
[2021-05-07] MEDS: Sodium Chloride 1 GM TAB PO SCH ×3 (09:01→21:01)
[2021-05-07] MEDS: Flecainide 50 MG TAB PO SCH ×2 (09:01→21:02)
[2021-05-07] MEDS: Finasteride 5 MG TAB PO SCH (09:01)
[2021-05-07] MEDS: Sodium Bicarbonate Tab 325 MG TAB PO SCH ×3 (09:01→21:01)
[2021-05-07] MEDS: Apixaban 2.5 MG TAB PO SCH ×2 (09:01→21:01)
[2021-05-07] MEDS: Folic Acid 1 MG TAB PO SCH (09:01)
[2021-05-07] MEDS: Cyanocobalamin (Vitamin B-12) 1,000 MCG TAB PO SCH (09:01)
[2021-05-07] MEDS ORDERED: Torsemide 20 MG TAB PO SCH (12:45)
[2021-05-07] MEDS: Atorvastatin Calcium 20 MG TAB PO SCH (21:01)
[2021-05-07] MEDS: Fenofibrate Nanocrystallized 145 MG TAB PO SCH (21:01)
[2021-05-08 04:11] LABS: Albumin 2.6 g/dL (3.4-4.8); Anion Gap 11 mmol/L (10-20); BUN (Urea Nitrogen) 26 mg/dL (8.4-25.7); BUN/Creatinine Ratio 19.26; Calc. Creatinine Clearance 64 mL/min (70-130); Calcium 8.5 mg/dL (7.8-10.44); Carbon Dioxide 27 mmol/L (23-31); Chloride 101 mmol/L (98-107); Glucose 109 mg/dL (83-110); Magnesium 1.7 mg/dL (1.6-2.6); Phosphorus 2.4 mg/dL (2.3-4.7); Potassium 4.1 mmol/L (3.5-5.1); Sodium 135 mmol/L (136-145)
[2021-05-08] MEDS: Levothyroxine Sodium 100 MCG TAB PO SCH (05:46)
[2021-05-08] MEDS: Cyanocobalamin (Vitamin B-12) 1,000 MCG TAB PO SCH (08:38)
[2021-05-08] MEDS: Folic Acid 1 MG TAB PO SCH (08:39)
[2021-05-08] MEDS: Sodium Chloride 1 GM TAB PO SCH ×3 (08:39→21:37)
[2021-05-08] MEDS: Flecainide 50 MG TAB PO SCH ×2 (08:39→21:37)
[2021-05-08] MEDS: Sodium Bicarbonate Tab 325 MG TAB PO SCH ×3 (08:39→21:37)
[2021-05-08] MEDS: Magnesium Oxide 400 MG TAB PO SCH ×2 (08:39→21:37)
[2021-05-08] MEDS: Finasteride 5 MG TAB PO SCH (08:39)
[2021-05-08] MEDS: Apixaban 2.5 MG TAB PO SCH ×2 (08:39→21:36)
[2021-05-08] MEDS: Polyethylene Glycol 3350 17 GM Packet PO SCH (08:40)
[2021-05-08] MEDS: Midodrine HCl 2.5 MG TAB PO SCH ×2 (15:15→21:37)
[2021-05-08] MEDS: Atorvastatin Calcium 20 MG TAB PO SCH (21:36)
[2021-05-08] MEDS: Fenofibrate Nanocrystallized 145 MG TAB PO SCH (21:37)
[2021-05-09 05:03] LABS: Albumin 2.7 g/dL (3.4-4.8); Anion Gap 10 mmol/L (10-20); BUN (Urea Nitrogen) 28 mg/dL (8.4-25.7); BUN/Creatinine Ratio 19.86; Calc. Creatinine Clearance 61 mL/min (70-130); Calcium 8.9 mg/dL (7.8-10.44); Carbon Dioxide 29 mmol/L (23-31); Chloride 100 mmol/L (98-107); Glucose 101 mg/dL (83-110); Magnesium 1.7 mg/dL (1.6-2.6); Phosphorus 2.3 mg/dL (2.3-4.7); Potassium 4.6 mmol/L (3.5-5.1); Sodium 134 mmol/L (136-145)
[2021-05-09] MEDS: Levothyroxine Sodium 100 MCG TAB PO SCH (05:55)
[2021-05-09] MEDS ORDERED: Sodium Chloride 0.9% 1,000 ML IV SCH (06:15)
[2021-05-09] MEDS ORDERED: Albumin 25% 25 GM/100 ML BOT IVPB SCH (06:30)
[2021-05-09] MEDS: Folic Acid 1 MG TAB PO SCH (09:26)
[2021-05-09] MEDS: Magnesium Oxide 400 MG TAB PO SCH ×2 (09:26→22:20)
[2021-05-09] MEDS: Flecainide 50 MG TAB PO SCH ×2 (09:26→22:19)
[2021-05-09] MEDS: Sodium Chloride 1 GM TAB PO SCH ×3 (09:26→22:24)
[2021-05-09] MEDS: Sodium Bicarbonate Tab 325 MG TAB PO SCH ×3 (09:26→22:19)
[2021-05-09] MEDS: Cyanocobalamin (Vitamin B-12) 1,000 MCG TAB PO SCH (09:26)
[2021-05-09] MEDS: Finasteride 5 MG TAB PO SCH (09:27)
[2021-05-09] MEDS: Apixaban 2.5 MG TAB PO SCH ×2 (09:27→22:22)
[2021-05-09] MEDS: Midodrine HCl 2.5 MG TAB PO SCH ×3 (09:27→22:21)
[2021-05-09] MEDS: Polyethylene Glycol 3350 17 GM Packet PO SCH (09:28)
[2021-05-09 13:27] LABS: Anion Gap 11 mmol/L (10-20); BUN (Urea Nitrogen) 25 mg/dL (8.4-25.7); Calc. Creatinine Clearance 66 mL/min (70-130); Calcium 8.7 mg/dL (7.8-10.44); Carbon Dioxide 25 mmol/L (23-31); Chloride 102 mmol/L (98-107); Glucose 139 mg/dL (83-110); Potassium 4.5 mmol/L (3.5-5.1); Sodium 133 mmol/L (136-145)
[2021-05-09] MEDS: Atorvastatin Calcium 20 MG TAB PO SCH (22:21)
[2021-05-09] MEDS: Fenofibrate Nanocrystallized 145 MG TAB PO SCH (22:21)
[2021-05-10 03:35] LABS: Anion Gap 11 mmol/L (10-20); BUN (Urea Nitrogen) 22 mg/dL (8.4-25.7); BUN/Creatinine Ratio 17.19; Calc. Creatinine Clearance 67 mL/min (70-130); Calcium 8.8 mg/dL (7.8-10.44); Carbon Dioxide 24 mmol/L (23-31); Chloride 106 mmol/L (98-107); Glucose 82 mg/dL (83-110); Phosphorus 2.3 mg/dL (2.3-4.7); Potassium 4.4 mmol/L (3.5-5.1); Sodium 137 mmol/L (136-145)
[2021-05-10] MEDS: Levothyroxine Sodium 100 MCG TAB PO SCH (06:08)
[2021-05-10 08:08] VITALS: TEMP 97.9
[2021-05-10] MEDS: Folic Acid 1 MG TAB PO SCH (09:06)
[2021-05-10] MEDS: Sodium Bicarbonate Tab 325 MG TAB PO SCH (09:06)
[2021-05-10] MEDS: Midodrine HCl 2.5 MG TAB PO SCH (09:06)
[2021-05-10] MEDS: Finasteride 5 MG TAB PO SCH (09:06)
[2021-05-10] MEDS: Magnesium Oxide 400 MG TAB PO SCH (09:07)
[2021-05-10] MEDS: Cyanocobalamin (Vitamin B-12) 1,000 MCG TAB PO SCH (09:07)
[2021-05-10] MEDS: Sodium Chloride 1 GM TAB PO SCH (09:07)
[2021-05-10] MEDS: Flecainide 50 MG TAB PO SCH (09:07)
[2021-05-10] MEDS: Apixaban 2.5 MG TAB PO SCH (09:07)
[2021-05-10] MEDS: Polyethylene Glycol 3350 17 GM Packet PO SCH (09:47)
[2021-05-10 11:32] VITALS: BP 111/78
== END 2021-05-10 11:15 | DRG 919 ==
LOC: CSHERS 05:44 → CSHTELE 10:31 → OBSVTOIN 04-25 14:02 → CSHTELE 05-01 10:02
PROVIDERS: ADMIT Internal Medicine; ATTEND Family Medicine
PROC: 8E0ZXY6 Isolation (ICD-10-PCS; principal; 2021-04-25)
DX: T88.8XXA Other specified complications of surgical and medical care, not elsewhere classified, initial encounter (principal); U07.1 COVID-19; I97.190 Other postprocedural cardiac functional disturbances following cardiac surgery; N39.0 Urinary tract infection, site not specified; K92.1 Melena; E22.2 Syndrome of inappropriate secretion of antidiuretic hormone; E87.2 Acidosis; N17.9 Acute kidney failure, unspecified; E86.9 Volume depletion, unspecified; E03.9 Hypothyroidism, unspecified; E83.42 Hypomagnesemia; R77.8 Other specified abnormalities of plasma proteins; N40.0 Benign prostatic hyperplasia without lower urinary tract symptoms; E78.5 Hyperlipidemia, unspecified; I45.10 Unspecified right bundle-branch block; N40.1 Benign prostatic hyperplasia with lower urinary tract symptoms; R33.8 Other retention of urine; E11.22 Type 2 diabetes mellitus with diabetic chronic kidney disease; I12.9 Hypertensive chronic kidney disease with stage 1 through stage 4 chronic kidney disease, or unspecified chronic kidney disease; N18.30 Chronic kidney disease, stage 3 unspecified; R53.81 Other malaise; I95.1 Orthostatic hypotension; Z79.01 Long term (current) use of anticoagulants; Z79.890 Hormone replacement therapy; Z79.891 Long term (current) use of opiate analgesic; Z79.899 Other long term (current) drug therapy; I48.0 Paroxysmal atrial fibrillation
CPT/HCPCS: 0240U; 36415; 51702; 71045; 80048; 80053; 80069; 81003; 81015; 82274; 82533; 82553; 82570; 82607; 82746; 83735; 83880; 83930; 83935; 84300; 84439; 84443; 84484; 85025; 87077; 87086; 87186; 93005; 93010; 93306; 94760; 94762; 96365; 96375; 96376; G0378; J0696; J2405; J3475; J3490; J7050; P9047

== ENCOUNTER 2021-07-04 17:36 | Inpatient (IN) | payer MEDICARE ==
[2021-07-04] MEDS ORDERED: Acetaminophen 325 MG TAB PO PRN (18:28)
[2021-07-04] MEDS ORDERED: Bisacodyl 5 MG TAB PO PRN (18:28)
[2021-07-04 18:32] LABS: ALT (SGPT) 20 U/L (8-55); AST (SGOT) 39 U/L (5-34); Albumin 3.6 g/dL (3.4-4.8); Alkaline Phosphatase 48 U/L (40-110); Anion Gap 14 mmol/L (10-20); BUN (Urea Nitrogen) 29 mg/dL (8.4-25.7); Bilirubin, Total 0.8 mg/dL (0.2-1.2); CK (CPK) 41 U/L (30-200); Calc. Creatinine Clearance 0 mL/min (70-130); Calcium 8.9 mg/dL (7.8-10.44); Carbon Dioxide 22 mmol/L (23-31); Chloride 106 mmol/L (98-107); Globulin 2.6 g/dL (2.4-3.5); Glucose 166 mg/dL (83-110); Potassium 4.5 mmol/L (3.5-5.1); Protein, Total 6.2 g/dL (5.8-8.1); Sodium 137 mmol/L (136-145)
[2021-07-04 18:34] LABS: #Eosinphils 0.1 10x3/uL (0.0-0.5); #Monocytes 0.8 10x3/uL (0.0-1.1); #Neutrophils 3.4 10x3/uL (1.5-8.4); %Basophils 0.5 % (0.0-2.0); %Lymphocytes 27.9 % (18.0-47.0); %Monocytes 13.1 % (0.0-10.0); %Neutrophils 56.2 % (40.0-75.0); Hemoglobin 11.7 g/dL (13.5-17.5); Mean Corpuscular HGB CONC 33.7 g/dL (32.0-36.0); Mean Corpuscular Hemoglobin 30.5 pg (27.0-33.0); Mean Corpuscular Volume 90.6 fl (81.2-95.1); Mean Platelet Volume 10.1 fl (7.4-10.4); Platelet Count 200 10x3/uL (150-450); RBC Distribution Width 17.8 % (11.5-14.5); Red Blood Cell (RBC) Count 3.83 10x6/uL (4.32-5.72); White Blood Cell (WBC) Count 6.1 10x3/uL (3.5-10.5)
[2021-07-04] MEDS ORDERED: Dextrose 5% in Water 1,000 ML IV PRN (19:07)
[2021-07-04] MEDS ORDERED: Insulin Regular 300 UNITS/3 ML VIAL SC PRN (19:07)
[2021-07-04] MEDS ORDERED: Dextrose 50% Abboject 50 ML SYRINGE SLOW IVP PRN (19:07)
[2021-07-04 20:52] LABS: SARS-CoV-2 NAA Rapid Test DETECTED (NotDetected)
[2021-07-04] MEDS ORDERED: Apixaban 2.5 MG TAB PO SCH (22:45)
[2021-07-04] MEDS ORDERED: Midodrine HCl 2.5 MG TAB PO SCH (22:45)
[2021-07-04] MEDS ORDERED: Famotidine 20 MG TAB PO SCH (22:45)
[2021-07-04] MEDS ORDERED: Atorvastatin Calcium 20 MG TAB PO SCH (22:45)
[2021-07-04] MEDS ORDERED: Fenofibrate Nanocrystallized 145 MG TAB PO SCH (22:45)
[2021-07-05 04:11] LABS: #Eosinphils 0.2 10x3/uL (0.0-0.5); #Monocytes 0.6 10x3/uL (0.0-1.1); #Neutrophils 2.4 10x3/uL (1.5-8.4); %Basophils 0.6 % (0.0-2.0); %Eosinophils 4.9 % (0.0-6.0); %Lymphocytes 33.2 % (18.0-47.0); %Monocytes 12.2 % (0.0-10.0); %Neutrophils 48.9 % (40.0-75.0); Mean Corpuscular Volume 90.7 fl (81.2-95.1); Mean Platelet Volume 9.6 fl (7.4-10.4); Platelet Count 132 10x3/uL (150-450); RBC Distribution Width 17.5 % (11.5-14.5); Red Blood Cell (RBC) Count 3.67 10x6/uL (4.32-5.72); White Blood Cell (WBC) Count 4.9 10x3/uL (3.5-10.5)
[2021-07-05 04:25] LABS: Anion Gap 12 mmol/L (10-20); BUN (Urea Nitrogen) 26 mg/dL (8.4-25.7); Calc. Creatinine Clearance 48 mL/min (70-130); Calcium 8.8 mg/dL (7.8-10.44); Carbon Dioxide 23 mmol/L (23-31); Chloride 110 mmol/L (98-107); Glucose 85 mg/dL (83-110); Potassium 4.5 mmol/L (3.5-5.1); Sodium 140 mmol/L (136-145)
[2021-07-05] MEDS: Levothyroxine Sodium 125 MCG TAB PO SCH (06:32)
[2021-07-05] MEDS: Famotidine 20 MG TAB PO SCH ×2 (08:00→21:45)
[2021-07-05] MEDS: Finasteride 5 MG TAB PO SCH (08:00)
[2021-07-05] MEDS: Midodrine HCl 2.5 MG TAB PO SCH ×3 (08:01→21:45)
[2021-07-05] MEDS ORDERED: Apixaban 2.5 MG TAB PO SCH (09:00)
[2021-07-05] MEDS ORDERED: Enoxaparin Sodium 40 MG/0.4 ML SYRINGE SC SCH (09:00)
[2021-07-05] MEDS: Atorvastatin Calcium 20 MG TAB PO SCH (21:45)
[2021-07-05] MEDS: Fenofibrate Nanocrystallized 145 MG TAB PO SCH (21:48)
[2021-07-06] MEDS: Levothyroxine Sodium 125 MCG TAB PO SCH (05:11)
[2021-07-06] MEDS ORDERED: CEFAZOLIN 1 GM VIAL ONE ×2 (07:11→07:15)
[2021-07-06] MEDS ORDERED: Gentamicin 80 MG/2 ML VIAL ONE (07:11)
[2021-07-06] MEDS ORDERED: Lidocaine 1% (PF) 30 ML VIAL ONE (07:30)
[2021-07-06] MEDS ORDERED: Fentanyl 100 MCG/2 ML VIAL ONE (08:06)
[2021-07-06] MEDS ORDERED: Midazolam HCl 2 mg/2 ml Vial ONE ×3 (08:07→09:11)
[2021-07-06] MEDS: Midodrine HCl 2.5 MG TAB PO SCH ×3 (10:37→21:24)
[2021-07-06] MEDS: Finasteride 5 MG TAB PO SCH (10:37)
[2021-07-06] MEDS: Famotidine 20 MG TAB PO SCH (10:38)
[2021-07-06] MEDS: CEFAZOLIN 1 GM VIAL SLOW IVP SCH (14:39)
[2021-07-06] MEDS: Fenofibrate Nanocrystallized 145 MG TAB PO SCH (21:24)
[2021-07-06] MEDS: Atorvastatin Calcium 20 MG TAB PO SCH (21:24)
[2021-07-07] MEDS: CEFAZOLIN 1 GM in Sodium Chloride 0.9% 100 ML IVPB SCH ×2 (00:05→07:47)
[2021-07-07] MEDS: CEFAZOLIN 1 GM VIAL SLOW IVP SCH (00:52)
[2021-07-07] MEDS: Levothyroxine Sodium 125 MCG TAB PO SCH (05:40)
[2021-07-07 05:52] VITALS: BMI 30.4
[2021-07-07] MEDS ORDERED: Sodium Chloride 0.9% 1,000 ML IV SCH (07:00)
[2021-07-07] MEDS: Midodrine HCl 2.5 MG TAB PO SCH ×3 (07:48→21:13)
[2021-07-07] MEDS: Famotidine 20 MG TAB PO SCH (07:48)
[2021-07-07] MEDS: Finasteride 5 MG TAB PO SCH (07:48)
[2021-07-07] MEDS ORDERED: CEFAZOLIN 1 GM VIAL ONE (12:58)
[2021-07-07] MEDS ORDERED: Gentamicin 80 MG/2 ML VIAL ONE (12:58)
[2021-07-07] MEDS ORDERED: Midazolam HCl 2 mg/2 ml Vial ONE (12:59)
[2021-07-07] MEDS ORDERED: Fentanyl 100 MCG/2 ML VIAL ONE (12:59)
[2021-07-07] MEDS ORDERED: Lidocaine 1% (PF) 30 ML VIAL ONE (13:01)
[2021-07-07] MEDS: Atorvastatin Calcium 20 MG TAB PO SCH (21:13)
[2021-07-07] MEDS: Cefadroxil Hydrate 250 mg/5 ml Suspensio PO SCH (21:13)
[2021-07-07] MEDS: Fenofibrate Nanocrystallized 145 MG TAB PO SCH (21:13)
[2021-07-08] MEDS: Levothyroxine Sodium 125 MCG TAB PO SCH (05:47)
[2021-07-08] MEDS: Famotidine 20 MG TAB PO SCH (09:35)
[2021-07-08] MEDS: Cefadroxil Hydrate 250 mg/5 ml Suspensio PO SCH (09:35)
[2021-07-08] MEDS: Midodrine HCl 2.5 MG TAB PO SCH (09:35)
[2021-07-08] MEDS: Finasteride 5 MG TAB PO SCH (09:35)
[2021-07-08 13:08] VITALS: TEMP 99.3
[2021-07-08 14:27] VITALS: BP 154/82
== END 2021-07-08 15:29 | disposition home or self-care (01) | DRG 242 ==
LOC: CSHERS 17:36 → CSHICU 18:27 → INTOOBSV 18:27 → UNDOADMIN 22:07 → CSHICU 22:07 → OBSVTOIN 07-06 16:10 → CSHTELE 07-07 17:55
PROVIDERS: ADMIT Hospitalist; ATTEND Hospitalist
PROC: 0JH606Z Insertion of Pacemaker, Dual Chamber into Chest Subcutaneous Tissue and Fascia, Open Approach (ICD-10-PCS; principal; 2021-07-06)
PROC: 02H63JZ Insertion of Pacemaker Lead into Right Atrium, Percutaneous Approach (ICD-10-PCS; 2021-07-06)
PROC: 02HK3JZ Insertion of Pacemaker Lead into Right Ventricle, Percutaneous Approach (ICD-10-PCS; 2021-07-06)
DX: R00.1 Bradycardia, unspecified (principal); U07.1 COVID-19; E11.22 Type 2 diabetes mellitus with diabetic chronic kidney disease; N18.30 Chronic kidney disease, stage 3 unspecified; N40.0 Benign prostatic hyperplasia without lower urinary tract symptoms; E78.5 Hyperlipidemia, unspecified; I12.9 Hypertensive chronic kidney disease with stage 1 through stage 4 chronic kidney disease, or unspecified chronic kidney disease; Z96.653 Presence of artificial knee joint, bilateral; K21.9 Gastro-esophageal reflux disease without esophagitis; E03.9 Hypothyroidism, unspecified; I48.0 Paroxysmal atrial fibrillation; I95.1 Orthostatic hypotension; I25.10 Atherosclerotic heart disease of native coronary artery without angina pectoris; E78.00 Pure hypercholesterolemia, unspecified; I45.5 Other specified heart block; I45.10 Unspecified right bundle-branch block; I44.0 Atrioventricular block, first degree; Z88.5 Allergy status to narcotic agent; Z79.899 Other long term (current) drug therapy; Z79.01 Long term (current) use of anticoagulants
CPT/HCPCS: 33208; 36415; 36416; 71045; 75820; 80048; 80053; 82550; 84484; 85025; 92960; 93005; 93010; 94760; 96374; 99152; 99153; C1785; C1898; G0378; J0690; J1580; J2001; J2250; J2704; J3010; J3490; J7050; U0002

== ENCOUNTER → 2021-07-04 | Day surgery (SDC) | payer MEDICARE ==
[~2021-07-04] MED LIST: FLU VACC QS2021-22(65YR UP)/PF 240 MCG/0.7 ML SYRINGE IM ONE; PROPOFOL 20 ML ONE
[2021-07-04 09:49] VITALS: BP 137/69; TEMP 97.6
== END ==
LOC: CSHSDC 08:29
PROVIDERS: ATTEND Specialist
DX: I48.91 Unspecified atrial fibrillation (principal); E78.5 Hyperlipidemia, unspecified; E11.9 Type 2 diabetes mellitus without complications; Z79.01 Long term (current) use of anticoagulants; Z79.899 Other long term (current) drug therapy
CPT/HCPCS: 92960; 93005; 93010; J2704

== ENCOUNTER 2021-08-12 13:23 | Outpatient (CLI) | payer MEDICARE | END 2021-08-12 13:24 | disposition home or self-care (01) | LOC: CSHCT 13:23 | PROVIDERS: ATTEND Family Medicine | DX: R22.32 Localized swelling, mass and lump, left upper limb (principal); M79.602 Pain in left arm; M79.89 Other specified soft tissue disorders | CPT/HCPCS: 82565 ==

== ENCOUNTER 2021-08-26 09:39 | Outpatient (CLI) | payer MEDICARE | END 2021-08-26 09:40 | disposition home or self-care (01) | LOC: CSHULT 09:39 | PROVIDERS: ATTEND Family Medicine | DX: M79.89 Other specified soft tissue disorders (principal) | CPT/HCPCS: 76999 ==

== ENCOUNTER 2021-09-12 08:53 | Inpatient (IN) | payer MEDICARE ==
[2021-09-12 09:33] LABS: Mean Corpuscular HGB CONC 35.7 g/dL (32.0-36.0); Mean Corpuscular Hemoglobin 30.5 pg (27.0-33.0); Mean Corpuscular Volume 85.3 fl (81.2-95.1); RBC Distribution Width 16.1 % (11.5-14.5); Red Blood Cell (RBC) Count 3.61 10x6/uL (4.32-5.72); White Blood Cell (WBC) Count 14.8 10x3/uL (3.5-10.5)
[2021-09-12 09:34] LABS: Platelet Count 108 10x3/uL (150-450)
[2021-09-12 09:35] LABS: MDiff Complete? YES; Mean Platelet Volume 9.9 fl (7.4-10.4)
[2021-09-12 09:49] LABS: ALT (SGPT) 27 U/L (8-55); AST (SGOT) 56 U/L (5-34); Albumin 2.8 g/dL (3.4-4.8); Alkaline Phosphatase 41 U/L (40-110); Anion Gap 15 mmol/L (10-20); BUN (Urea Nitrogen) 26 mg/dL (8.4-25.7); Bilirubin, Total 1.6 mg/dL (0.2-1.2); Calc. Creatinine Clearance 0 mL/min (70-130); Calcium 7.9 mg/dL (7.8-10.44); Carbon Dioxide 19 mmol/L (23-31); Chloride 91 mmol/L (98-107); Globulin 2.3 g/dL (2.4-3.5); Glucose 104 mg/dL (83-110); Magnesium 1.4 mg/dL (1.6-2.6); Protein, Total 5.1 g/dL (5.8-8.1); Sodium 122 mmol/L (136-145)
[2021-09-12 10:08] LABS: Band 4 % (5-11); CKMB 0.4 ng/mL (0-6.6); Lymphocytes 3 % (21-51); Metamyelocyte 1 % (0-0); Monocytes 9 % (0-10); Neutrophil 83 % (42-75)
[2021-09-12 10:10] LABS: Anisocytosis SLIGHT = 6-15 cells (100X) (0-5/hpf)
[2021-09-12 10:11] LABS: Dohle Bodies SLIGHT; Platelet Morphology Comment Appears Decreased; Vacuoles SLIGHT
[2021-09-12] MEDS ORDERED: Potassium Chloride 20 MEQ TAB ONE (10:27)
[2021-09-12] MEDS ORDERED: Magnesium 2 GM/50 ML BAG (IN WATER) ONE ×2 (10:28→14:46)
[2021-09-12 10:36] LABS: Bilirubin Neg (Negative); Blood, Urine 150 (Negative); Clarity Cloudy (Clear); Glucose, Urine (Dipstick) 50 mg/dL (Negative); Ketone, Urine 5 mg/dL (Negative); Leukocyte 500 (Negative); Nitrite Positive (Negative); Protein, Urine (Dipstick) 30 mg/dl (Neg-Trace); Specific Gravity, Urine 1.015 (1.002-1.036); Urobilinogen Normal mg/dL (Less than 2)
[2021-09-12 10:57] LABS: Bacteria/HPF 3+ HPF (None Seen); RBC/HPF 0-3 HPF (0-3); Squamous Epithelial 0-3 HPF (0-3); WBC/HPF 21-50 HPF (0-3)
[2021-09-12] MEDS ORDERED: cefTRIAXone\\ROCEPHIN 2 GM VIAL ONE (11:55)
[2021-09-12 13:24] LABS: Troponin I 0.032 ng/mL (< 0.028)
[2021-09-12] MEDS ORDERED: Pharmacy to Dose ABX/VANCOMYCIN IVPB PRN (14:36)
[2021-09-12] MEDS ORDERED: Sodium Chloride 0.9% 1,000 ML IV SCH (15:00)
[2021-09-12] MEDS ORDERED: Magnesium 2 GM/50 ML 2 GM in Premix Bag 1 BAG IVPB SCH (15:00)
[2021-09-12 15:24] LABS: Hemoglobin 12.2 g/dL (13.5-17.5); MDiff Complete? YES; Manual Diff?? YES; Mean Corpuscular HGB CONC 35.8 g/dL (32.0-36.0); Mean Corpuscular Hemoglobin 30.3 pg (27.0-33.0); Mean Corpuscular Volume 84.8 fl (81.2-95.1); Platelet Count 107 10x3/uL (150-450); RBC Distribution Width 16.2 % (11.5-14.5); Red Blood Cell (RBC) Count 4.02 10x6/uL (4.32-5.72)
[2021-09-12 15:32] LABS: ALT (SGPT) 26 U/L (8-55); AST (SGOT) 61 U/L (5-34); Albumin 2.9 g/dL (3.4-4.8); Alkaline Phosphatase 47 U/L (40-110); Anion Gap 14 mmol/L (10-20); BUN (Urea Nitrogen) 26 mg/dL (8.4-25.7); Bilirubin, Total 1.4 mg/dL (0.2-1.2); Calc. Creatinine Clearance 0 mL/min (70-130); Calcium 8.4 mg/dL (7.8-10.44); Carbon Dioxide 18 mmol/L (23-31); Chloride 92 mmol/L (98-107); Globulin 3.1 g/dL (2.4-3.5); Glucose 104 mg/dL (83-110); Potassium 3.2 mmol/L (3.5-5.1); Sodium 121 mmol/L (136-145)
[2021-09-12] MEDS ORDERED: Acetaminophen 325 MG TAB PO PRN (15:46)
[2021-09-12] MEDS ORDERED: Acetaminophen 650 MG Suppository PR PRN (15:46)
[2021-09-12 15:47] LABS: Band 34 % (5-11); Lymphocytes 2 % (21-51); Monocytes 3 % (0-10); Neutrophil 61 % (42-75)
[2021-09-12 15:48] LABS: Platelet Morphology Comment Appears Decreased
[2021-09-12 15:49] LABS: Anisocytosis SLIGHT = 6-15 cells (100X) (0-5/hpf)
[2021-09-12] MEDS ORDERED: Vancomycin 1.5 GRAM/300 ML BAG 1.5 GM in Premix Bag 1 BAG IVPB SCH (16:15)
[2021-09-12] MEDS: NS 0.9% w/ 40 MEQ KCL 1,000 ML IV SCH (16:55)
[2021-09-12] MEDS ORDERED: NS 0.9% w/ 40 MEQ KCL 1,000 ML IV ONE (17:01)
[2021-09-12] MEDS ORDERED: Apixaban 5 MG TAB ONE (18:28)
[2021-09-12] MEDS ORDERED: Midodrine HCl 2.5 MG TAB PO SCH (18:30)
[2021-09-12] MEDS ORDERED: Midodrine HCl 5 MG TAB PO SCH (18:30)
[2021-09-12 18:53] LABS: Anion Gap 16 mmol/L (10-20); BUN (Urea Nitrogen) 27 mg/dL (8.4-25.7); Calc. Creatinine Clearance 0 mL/min (70-130); Calcium 8.2 mg/dL (7.8-10.44); Carbon Dioxide 16 mmol/L (23-31); Chloride 95 mmol/L (98-107); Glucose 101 mg/dL (83-110); Potassium 3.6 mmol/L (3.5-5.1); Sodium 123 mmol/L (136-145)
[2021-09-12] MEDS ORDERED: Cefepime 2 GM in Sodium Chloride 0.9% 100 ML IVPB SCH (21:00)
[2021-09-12] MEDS: Amiodarone 200 MG TAB PO SCH (23:38)
[2021-09-12] MEDS: Apixaban 2.5 MG TAB PO SCH (23:38)
[2021-09-13 04:49] LABS: Hemoglobin 10.9 g/dL (13.5-17.5); Mean Corpuscular Hemoglobin 30.4 pg (27.0-33.0); Mean Corpuscular Volume 84.6 fl (81.2-95.1); Platelet Count 113 10x3/uL (150-450); RBC Distribution Width 16.5 % (11.5-14.5); Red Blood Cell (RBC) Count 3.58 10x6/uL (4.32-5.72); White Blood Cell (WBC) Count 18.5 10x3/uL (3.5-10.5)
[2021-09-13 04:54] LABS: ALT (SGPT) 30 U/L (8-55); AST (SGOT) 74 U/L (5-34); Albumin 2.6 g/dL (3.4-4.8); Alkaline Phosphatase 48 U/L (40-110); Anion Gap 17 mmol/L (10-20); BUN (Urea Nitrogen) 34 mg/dL (8.4-25.7); Calc. Creatinine Clearance 50 mL/min (70-130); Calcium 7.9 mg/dL (7.8-10.44); Carbon Dioxide 13 mmol/L (23-31); Chloride 99 mmol/L (98-107); Globulin 2.8 g/dL (2.4-3.5); Glucose 105 mg/dL (83-110); Protein, Total 5.4 g/dL (5.8-8.1); Sodium 125 mmol/L (136-145)
[2021-09-13 07:08] LABS: Band 12 % (5-11); Lymphocytes 2 % (21-51); Monocytes 8 % (0-10); Neutrophil 78 % (42-75)
[2021-09-13 07:11] LABS: Anisocytosis SLIGHT = 6-15 cells (100X) (0-5/hpf); Bilirubin, Total 1.3 mg/dL (0.2-1.2); Dohle Bodies MODERATE; Microcytosis SLIGHT = 6-15 cells (100X) (0-5/hpf); Platelet Morphology Comment Appears Decreased; Toxic Granulation MODERATE; Vacuoles SLIGHT
[2021-09-13 07:12] LABS: Large Platelets SLIGHT; MDiff Complete? YES
[2021-09-13] MEDS: Amiodarone 200 MG TAB PO SCH ×2 (10:51→20:50)
[2021-09-13] MEDS: Apixaban 2.5 MG TAB PO SCH ×2 (10:51→20:50)
[2021-09-13] MEDS: NS 0.9% w/ 40 MEQ KCL 1,000 ML IV SCH ×2 (10:52→17:23)
[2021-09-13] MEDS: VANCOMYCIN 1.25 GM/250 ML BAG 1.25 GM in Premix Bag 1 BAG IVPB SCH (17:27)
[2021-09-13] MEDS: Cefepime 2 GM in Sodium Chloride 0.9% 100 ML IVPB SCH (20:49)
[2021-09-13] MEDS: Atorvastatin Calcium 20 MG TAB PO SCH (20:50)
[2021-09-14] MEDS: Potassium Chloride 20 MEQ, Admixture Fee 1 EACH in Lactated Ringer's 1,000 ML IV SCH ×2 (00:04→15:48)
[2021-09-14 05:50] LABS: ALT (SGPT) 32 U/L (8-55); AST (SGOT) 82 U/L (5-34); Albumin 2.4 g/dL (3.4-4.8); Alkaline Phosphatase 91 U/L (40-110); Anion Gap 12 mmol/L (10-20); BUN (Urea Nitrogen) 50 mg/dL (8.4-25.7); Bilirubin, Total 1.2 mg/dL (0.2-1.2); Calc. Creatinine Clearance 49 mL/min (70-130); Calcium 8.5 mg/dL (7.8-10.44); Carbon Dioxide 16 mmol/L (23-31); Chloride 101 mmol/L (98-107); Cholesterol 57 mg/dl (< 200 Desired); Globulin 2.8 g/dL (2.4-3.5); Glucose 151 mg/dL (83-110); HDL Cholesterol Less than 5 mg/dL (>60 Neg Risk); Magnesium 2.2 mg/dL (1.6-2.6); Potassium 4.1 mmol/L (3.5-5.1); Protein, Total 5.2 g/dL (5.8-8.1); Sodium 125 mmol/L (136-145); Triglycerides 116 mg/dL (Less than 150)
[2021-09-14] MEDS: Levothyroxine Sodium 125 MCG TAB PO SCH (05:50)
[2021-09-14 05:58] LABS: Hemoglobin 10.6 g/dL (13.5-17.5); Mean Corpuscular HGB CONC 36.1 g/dL (32.0-36.0); Mean Corpuscular Hemoglobin 30.5 pg (27.0-33.0); Mean Corpuscular Volume 84.5 fl (81.2-95.1); Mean Platelet Volume 10.7 fl (7.4-10.4); Platelet Count 163 10x3/uL (150-450); RBC Distribution Width 16.9 % (11.5-14.5); Red Blood Cell (RBC) Count 3.48 10x6/uL (4.32-5.72); White Blood Cell (WBC) Count 20.5 10x3/uL (3.5-10.5)
[2021-09-14 06:01] LABS: Phosphorus 1.9 mg/dL (2.3-4.7)
[2021-09-14 06:27] LABS: LDL Cholesterol, Calculated 29 mg/dL
[2021-09-14 07:56] LABS: Band 14 % (5-11); Lymphocytes 6 % (21-51); Monocytes 6 % (0-10); Neutrophil 73 % (42-75); Nucleated RBC 1 % (0); Reactive Lymphocytes 1 % (0-10)
[2021-09-14 07:57] LABS: Anisocytosis SLIGHT = 6-15 cells (100X) (0-5/hpf); Burr Cells SLIGHT = 2-5 cells (100X) (0-1/hpf); Microcytosis SLIGHT = 6-15 cells (100X) (0-5/hpf); Ovalocytes SLIGHT = 2-5 cells (100X) (0-1/hpf); Poikilocytosis SLIGHT = 6-15 cells (100X) (0-5/hpf)
[2021-09-14 07:59] LABS: Dohle Bodies SLIGHT; Large Platelets SLIGHT; Toxic Granulation MODERATE
[2021-09-14 08:00] LABS: MDiff Complete? YES
[2021-09-14 08:01] LABS: Platelet Morphology Comment Appears Adequate
[2021-09-14] MEDS: Apixaban 2.5 MG TAB PO SCH ×2 (08:56→21:03)
[2021-09-14] MEDS: Amiodarone 200 MG TAB PO SCH ×2 (08:57→21:03)
[2021-09-14 13:12] LABS: Potassium, Urine 37.5 mmol/L; Sodium, Urine Less than 20 mmol/L (Not Available)
[2021-09-14 14:01] LABS: Sodium, Urine Less than 20 mmol/L (Not Available); Urea Nitrogen, Random Urine 523 mg/dl
[2021-09-14 16:00] LABS: Vancomycin, Trough 17.2 ug/mL
[2021-09-14] MEDS: VANCOMYCIN 1.25 GM/250 ML BAG 1.25 GM in Premix Bag 1 BAG IVPB SCH (16:01)
[2021-09-14] MEDS ORDERED: Lactated Ringer's 1,000 ML IV SCH (17:00)
[2021-09-14 17:09] LABS: SARS-CoV-2 PCR by NAA Not Detected (NotDetected)
[2021-09-14] MEDS: Lactated Ringer's 1,000 ML IV SCH (21:00)
[2021-09-14] MEDS: Atorvastatin Calcium 20 MG TAB PO SCH (21:03)
[2021-09-14] MEDS: Cefepime 2 GM in Sodium Chloride 0.9% 100 ML IVPB SCH (21:04)
[2021-09-15] MEDS: Lactated Ringer's 1,000 ML IV SCH ×4 (01:08→20:59)
[2021-09-15 06:02] LABS: ALT (SGPT) 36 U/L (8-55); AST (SGOT) 88 U/L (5-34); Albumin 2.3 g/dL (3.4-4.8); Alkaline Phosphatase 85 U/L (40-110); Anion Gap 13 mmol/L (10-20); BUN (Urea Nitrogen) 45 mg/dL (8.4-25.7); Bilirubin, Total 1.3 mg/dL (0.2-1.2); Calc. Creatinine Clearance 65 mL/min (70-130); Calcium 8.4 mg/dL (7.8-10.44); Carbon Dioxide 15 mmol/L (23-31); Chloride 102 mmol/L (98-107); Globulin 2.7 g/dL (2.4-3.5); Glucose 138 mg/dL (83-110); Potassium 4.5 mmol/L (3.5-5.1); Sodium 125 mmol/L (136-145)
[2021-09-15 06:08] LABS: Mean Corpuscular HGB CONC 35.5 g/dL (32.0-36.0); Mean Corpuscular Hemoglobin 30.2 pg (27.0-33.0); Mean Corpuscular Volume 85.2 fl (81.2-95.1); Mean Platelet Volume 9.9 fl (7.4-10.4); Platelet Count 164 10x3/uL (150-450); RBC Distribution Width 17.2 % (11.5-14.5); Red Blood Cell (RBC) Count 3.31 10x6/uL (4.32-5.72); White Blood Cell (WBC) Count 18.5 10x3/uL (3.5-10.5)
[2021-09-15] MEDS: Levothyroxine Sodium 125 MCG TAB PO SCH (06:27)
[2021-09-15] MEDS ORDERED: PROPOFOL 200 MG/20 ML VIAL ONE (08:00)
[2021-09-15 08:18] LABS: Band 12 % (5-11); Eosinophils 1 % (0-10); Metamyelocyte 1 % (0-0); Monocytes 4 % (0-10); Myelocyte 1 % (0-0)
[2021-09-15 08:19] LABS: Anisocytosis SLIGHT = 6-15 cells (100X) (0-5/hpf); Lymphocytes 4 % (21-51)
[2021-09-15 08:20] LABS: Macrocytosis SLIGHT = 6-15 cells (100X) (0-5/hpf); Microcytosis SLIGHT = 6-15 cells (100X) (0-5/hpf); Toxic Granulation MODERATE
[2021-09-15 08:21] LABS: Hypersemented Neutrophil SLIGHT; Platelet Morphology Comment Appears Adequate
[2021-09-15 08:22] LABS: MDiff Complete? YES; Neutrophil 77 % (42-75)
[2021-09-15 08:23] LABS: Ovalocytes SLIGHT = 2-5 cells (100X) (0-1/hpf); Poikilocytosis SLIGHT = 6-15 cells (100X) (0-5/hpf)
[2021-09-15 08:24] LABS: Burr Cells SLIGHT = 2-5 cells (100X) (0-1/hpf)
[2021-09-15] MEDS: Amiodarone 200 MG TAB PO SCH ×2 (11:33→21:02)
[2021-09-15] MEDS: Apixaban 2.5 MG TAB PO SCH (11:34)
[2021-09-15] MEDS: VANCOMYCIN 1.25 GM/250 ML BAG 1.25 GM in Premix Bag 1 BAG IVPB SCH (16:27)
[2021-09-15] MEDS: Atorvastatin Calcium 20 MG TAB PO SCH (21:03)
[2021-09-15] MEDS: Cefepime 2 GM in Sodium Chloride 0.9% 100 ML IVPB SCH (21:04)
[2021-09-16 05:30] LABS: Hemoglobin 10.3 g/dL (13.5-17.5); Mean Corpuscular HGB CONC 35.8 g/dL (32.0-36.0); Mean Platelet Volume 9.2 fl (7.4-10.4); Platelet Count 183 10x3/uL (150-450); RBC Distribution Width 17.1 % (11.5-14.5); Red Blood Cell (RBC) Count 3.43 10x6/uL (4.32-5.72); White Blood Cell (WBC) Count 19.8 10x3/uL (3.5-10.5)
[2021-09-16 05:34] LABS: ALT (SGPT) 45 U/L (8-55); AST (SGOT) 96 U/L (5-34); Albumin 2.2 g/dL (3.4-4.8); Alkaline Phosphatase 87 U/L (40-110); Anion Gap 12 mmol/L (10-20); BUN (Urea Nitrogen) 39 mg/dL (8.4-25.7); Bilirubin, Total 1.4 mg/dL (0.2-1.2); Calc. Creatinine Clearance 73 mL/min (70-130); Calcium 8.3 mg/dL (7.8-10.44); Carbon Dioxide 17 mmol/L (23-31); Chloride 101 mmol/L (98-107); Glucose 135 mg/dL (83-110); Potassium 4.4 mmol/L (3.5-5.1); Protein, Total 5.2 g/dL (5.8-8.1); Sodium 126 mmol/L (136-145)
[2021-09-16] MEDS: Lactated Ringer's 1,000 ML IV SCH ×2 (06:48→16:16)
[2021-09-16] MEDS: Levothyroxine Sodium 125 MCG TAB PO SCH (06:49)
[2021-09-16 07:23] LABS: MDiff Complete? YES
[2021-09-16 07:33] LABS: Band 9 % (5-11); Eosinophils 3 % (0-10); Lymphocytes 7 % (21-51); Monocytes 11 % (0-10); Neutrophil 69 % (42-75); Reactive Lymphocytes 1 % (0-10)
[2021-09-16] MEDS: Cefepime 2 GM in Sodium Chloride 0.9% 100 ML IVPB SCH ×2 (09:58→21:44)
[2021-09-16] MEDS: Amiodarone 200 MG TAB PO SCH ×2 (09:58→21:44)
[2021-09-16 16:07] LABS: Vancomycin, Trough 20.4 ug/mL
[2021-09-16] MEDS: Vancomycin HCl 1 GM in Sodium Chloride 0.9% 250 ML 250 ML IVPB SCH (18:32)
[2021-09-16] MEDS: Atorvastatin Calcium 20 MG TAB PO SCH (21:44)
[2021-09-16] MEDS: Apixaban 2.5 MG TAB PO SCH (21:44)
[2021-09-17] MEDS: Lactated Ringer's 1,000 ML IV SCH ×4 (03:24→23:23)
[2021-09-17 05:52] LABS: ALT (SGPT) 40 U/L (8-55); AST (SGOT) 73 U/L (5-34); Albumin 2.2 g/dL (3.4-4.8); Alkaline Phosphatase 84 U/L (40-110); Anion Gap 11 mmol/L (10-20); BUN (Urea Nitrogen) 39 mg/dL (8.4-25.7); Bilirubin, Total 1.4 mg/dL (0.2-1.2); Calc. Creatinine Clearance 80 mL/min (70-130); Calcium 8.3 mg/dL (7.8-10.44); Carbon Dioxide 16 mmol/L (23-31); Chloride 101 mmol/L (98-107); Globulin 3.3 g/dL (2.4-3.5); Glucose 115 mg/dL (83-110); Potassium 4.3 mmol/L (3.5-5.1); Protein, Total 5.5 g/dL (5.8-8.1); Sodium 124 mmol/L (136-145)
[2021-09-17 05:58] LABS: Hemoglobin 10.5 g/dL (13.5-17.5); Mean Corpuscular HGB CONC 35.7 g/dL (32.0-36.0); Mean Corpuscular Hemoglobin 30.3 pg (27.0-33.0); Mean Platelet Volume 9.4 fl (7.4-10.4); Platelet Count 201 10x3/uL (150-450); RBC Distribution Width 17.2 % (11.5-14.5); Red Blood Cell (RBC) Count 3.46 10x6/uL (4.32-5.72); White Blood Cell (WBC) Count 18.9 10x3/uL (3.5-10.5)
[2021-09-17] MEDS: Levothyroxine Sodium 125 MCG TAB PO SCH (06:06)
[2021-09-17 07:50] LABS: MDiff Complete? YES
[2021-09-17 08:03] LABS: Anisocytosis SLIGHT = 6-15 cells (100X) (0-5/hpf); Band 3 % (5-11); Eosinophils 2 % (0-10); Lymphocytes 7 % (21-51); Monocytes 6 % (0-10); Neutrophil 81 % (42-75); Platelet Morphology Comment Appears Adequate; Reactive Lymphocytes 1 % (0-10); Toxic Granulation SLIGHT
[2021-09-17] MEDS: Amiodarone 200 MG TAB PO SCH ×2 (10:01→20:53)
[2021-09-17] MEDS: Cefepime 2 GM in Sodium Chloride 0.9% 100 ML IVPB SCH ×2 (10:01→20:52)
[2021-09-17] MEDS: Apixaban 2.5 MG TAB PO SCH ×2 (10:01→20:53)
[2021-09-17] MEDS: Vancomycin HCl 1 GM in Sodium Chloride 0.9% 250 ML 250 ML IVPB SCH (17:21)
[2021-09-17] MEDS: Atorvastatin Calcium 20 MG TAB PO SCH (20:53)
[2021-09-18 05:13] LABS: Anion Gap 11 mmol/L (10-20); BUN (Urea Nitrogen) 39 mg/dL (8.4-25.7); Calc. Creatinine Clearance 77 mL/min (70-130); Calcium 8.1 mg/dL (7.8-10.44); Carbon Dioxide 15 mmol/L (23-31); Chloride 103 mmol/L (98-107); Glucose 131 mg/dL (83-110); Potassium 4.3 mmol/L (3.5-5.1); Sodium 125 mmol/L (136-145)
[2021-09-18 05:23] LABS: Hemoglobin 10.5 g/dL (13.5-17.5); Mean Corpuscular HGB CONC 35.7 g/dL (32.0-36.0); Mean Corpuscular Hemoglobin 30.6 pg (27.0-33.0); Mean Corpuscular Volume 85.7 fl (81.2-95.1); Mean Platelet Volume 9.2 fl (7.4-10.4); Platelet Count 205 10x3/uL (150-450); RBC Distribution Width 17.3 % (11.5-14.5); Red Blood Cell (RBC) Count 3.43 10x6/uL (4.32-5.72)
[2021-09-18] MEDS: Levothyroxine Sodium 125 MCG TAB PO SCH (05:29)
[2021-09-18 07:19] LABS: MDiff Complete? YES
[2021-09-18 07:24] LABS: Band 1 % (5-11); Eosinophils 3 % (0-10); Lymphocytes 8 % (21-51); Monocytes 14 % (0-10); Neutrophil 63 % (42-75); Reactive Lymphocytes 11 % (0-10)
[2021-09-18 07:25] LABS: Platelet Morphology Comment Appears Adequate; RBC Morphology Normal
[2021-09-18] MEDS: Lactated Ringer's 1,000 ML IV SCH (09:25)
[2021-09-18] MEDS: Amiodarone 200 MG TAB PO SCH ×2 (09:25→21:28)
[2021-09-18] MEDS: Apixaban 2.5 MG TAB PO SCH ×2 (09:26→21:28)
[2021-09-18] MEDS: Cefepime 2 GM in Sodium Chloride 0.9% 100 ML IVPB SCH ×2 (09:26→21:26)
[2021-09-18 16:31] LABS: Vancomycin, Trough 22.4 ug/mL
[2021-09-18] MEDS: Vancomycin HCl 1 GM in Sodium Chloride 0.9% 250 ML 250 ML IVPB SCH (17:42)
[2021-09-18] MEDS: Ondansetron PF 4 MG/2 ML Vial IVP PRN (17:42)
[2021-09-18] MEDS: Atorvastatin Calcium 20 MG TAB PO SCH (21:28)
[2021-09-19 05:56] LABS: Hemoglobin 10.4 g/dL (13.5-17.5); Mean Corpuscular HGB CONC 35.1 g/dL (32.0-36.0); Mean Corpuscular Hemoglobin 30.4 pg (27.0-33.0); Mean Corpuscular Volume 86.5 fl (81.2-95.1); Mean Platelet Volume 9.2 fl (7.4-10.4); Platelet Count 176 10x3/uL (150-450); RBC Distribution Width 17.7 % (11.5-14.5); Red Blood Cell (RBC) Count 3.42 10x6/uL (4.32-5.72); White Blood Cell (WBC) Count 13.3 10x3/uL (3.5-10.5)
[2021-09-19 06:09] LABS: Anion Gap 12 mmol/L (10-20); BUN (Urea Nitrogen) 37 mg/dL (8.4-25.7); Calc. Creatinine Clearance 83 mL/min (70-130); Calcium 8.1 mg/dL (7.8-10.44); Carbon Dioxide 15 mmol/L (23-31); Chloride 104 mmol/L (98-107); Glucose 132 mg/dL (83-110); Potassium 4.6 mmol/L (3.5-5.1); Sodium 126 mmol/L (136-145)
[2021-09-19] MEDS: Levothyroxine Sodium 125 MCG TAB PO SCH (06:12)
[2021-09-19 06:23] LABS: MDiff Complete? YES
[2021-09-19 06:28] LABS: Band 4 % (5-11); Eosinophils 1 % (0-10); Lymphocytes 11 % (21-51); Metamyelocyte 3 % (0-0); Monocytes 3 % (0-10); Myelocyte 3 % (0-0); Neutrophil 75 % (42-75)
[2021-09-19 06:29] LABS: Platelet Morphology Comment Appears Adequate; RBC Morphology Normal
[2021-09-19] MEDS: Apixaban 2.5 MG TAB PO SCH ×2 (09:52→22:24)
[2021-09-19] MEDS: Amiodarone 200 MG TAB PO SCH ×2 (09:52→22:24)
[2021-09-19] MEDS: Cefepime 2 GM in Sodium Chloride 0.9% 100 ML IVPB SCH ×2 (09:52→22:24)
[2021-09-19] MEDS: Ondansetron PF 4 MG/2 ML Vial IVP PRN (12:43)
[2021-09-19] MEDS ORDERED: Sodium Bicarb 50 MEQ/50 ML VIAL ONE (15:37)
[2021-09-19] MEDS ORDERED: Lidocaine 1% PF 5 ML VIAL ONE (15:38)
[2021-09-19] MEDS ORDERED: Sodium Bicarbonate 2.5 MEQ/5 ML VIAL ONE (15:39)
[2021-09-19] MEDS: Atorvastatin Calcium 20 MG TAB PO SCH (22:24)
[2021-09-19] MEDS: Mag-Al 1200 mg/1200 mg/30 ML UDCUP PO PRN (22:40)
[2021-09-20] MEDS: Levothyroxine Sodium 125 MCG TAB PO SCH (05:12)
[2021-09-20] MEDS: Vancomycin HCl 1 GM in Sodium Chloride 0.9% 250 ML 250 ML IVPB SCH (05:12)
[2021-09-20 05:26] LABS: Vancomycin, Trough 19.8 ug/mL
[2021-09-20] MEDS: Amiodarone 200 MG TAB PO SCH ×2 (08:07→21:06)
[2021-09-20] MEDS: Mag-Al 1200 mg/1200 mg/30 ML UDCUP PO PRN ×2 (08:07→17:05)
[2021-09-20] MEDS: Apixaban 2.5 MG TAB PO SCH ×2 (08:08→21:06)
[2021-09-20] MEDS: Cefepime 2 GM in Sodium Chloride 0.9% 100 ML IVPB SCH (08:08)
[2021-09-20 16:20] VITALS: BMI 36.0
[2021-09-20] MEDS: Atorvastatin Calcium 20 MG TAB PO SCH (21:06)
[2021-09-21 04:33] LABS: Hemoglobin 10.2 g/dL (13.5-17.5); Mean Corpuscular Hemoglobin 30.4 pg (27.0-33.0); Mean Corpuscular Volume 89.3 fl (81.2-95.1); Mean Platelet Volume 9.2 fl (7.4-10.4); Platelet Count 163 10x3/uL (150-450); RBC Distribution Width 17.9 % (11.5-14.5); Red Blood Cell (RBC) Count 3.36 10x6/uL (4.32-5.72); White Blood Cell (WBC) Count 12.9 10x3/uL (3.5-10.5)
[2021-09-21 04:54] LABS: Anion Gap 10 mmol/L (10-20); BUN (Urea Nitrogen) 33 mg/dL (8.4-25.7); CRP (Inflammatory) 7.62 mg/dL (= or < 0.5); Calc. Creatinine Clearance 89 mL/min (70-130); Calcium 8.1 mg/dL (7.8-10.44); Carbon Dioxide 18 mmol/L (23-31); Chloride 102 mmol/L (98-107); Glucose 143 mg/dL (83-110); Potassium 4.4 mmol/L (3.5-5.1); Sodium 126 mmol/L (136-145)
[2021-09-21 05:39] LABS: MDiff Complete? YES
[2021-09-21 05:42] LABS: Band 2 % (5-11); Eosinophils 1 % (0-10); Lymphocytes 7 % (21-51); Metamyelocyte 1 % (0-0); Monocytes 8 % (0-10); Myelocyte 1 % (0-0); Neutrophil 80 % (42-75); Platelet Morphology Comment Appears Adequate; Toxic Granulation SLIGHT
[2021-09-21 05:43] LABS: RBC Morphology Normal
[2021-09-21] MEDS: Levothyroxine Sodium 125 MCG TAB PO SCH (06:02)
[2021-09-21] MEDS: Apixaban 2.5 MG TAB PO SCH ×2 (08:07→22:26)
[2021-09-21] MEDS: Amiodarone 200 MG TAB PO SCH ×2 (08:07→22:25)
[2021-09-21] MEDS ORDERED: LACTINEX 1 TAB PO SCH (13:00)
[2021-09-21 16:21] LABS: Vancomycin, Trough 18.4 ug/mL
[2021-09-21] MEDS: Vancomycin HCl 1 GM in Sodium Chloride 0.9% 250 ML 250 ML IVPB SCH (17:49)
[2021-09-21] MEDS: Mag-Al 1200 mg/1200 mg/30 ML UDCUP PO PRN (18:28)
[2021-09-21] MEDS: Atorvastatin Calcium 20 MG TAB PO SCH (22:26)
[2021-09-22] MEDS ORDERED: Loperamide HCl 1 MG/7.5 ML UDCUP PO SCH (02:15)
[2021-09-22] MEDS: Levothyroxine Sodium 125 MCG TAB PO SCH (06:10)
[2021-09-22 08:30] VITALS: TEMP 97.9
[2021-09-22] MEDS ORDERED: LACTINEX 1 TAB PO SCH (09:00)
[2021-09-22] MEDS: Amiodarone 200 MG TAB PO SCH (09:36)
[2021-09-22] MEDS: Apixaban 2.5 MG TAB PO SCH (09:37)
[2021-09-22 11:46] VITALS: BP 99/71
== END 2021-09-22 11:29 | DRG 698 ==
LOC: CSHERS 08:53 → CSHERHOLD 15:05 → OBSVTOIN 15:05 → INTOOBSV 15:05 → CSHTELE 21:45
PROVIDERS: ADMIT Family Medicine; ATTEND Hospitalist
PROC: 02HV33Z Insertion of Infusion Device into Superior Vena Cava, Percutaneous Approach (ICD-10-PCS; principal; 2021-09-19)
PROC: B548ZZA Ultrasonography of Superior Vena Cava, Guidance (ICD-10-PCS; 2021-09-19)
PROC: B5181ZA Fluoroscopy of Superior Vena Cava using Low Osmolar Contrast, Guidance (ICD-10-PCS; 2021-09-19)
DX: T83.511A Infection and inflammatory reaction due to indwelling urethral catheter, initial encounter (principal); A41.02 Sepsis due to Methicillin resistant Staphylococcus aureus; I21.A1 Myocardial infarction type 2; R65.20 Severe sepsis without septic shock; E87.1 Hypo-osmolality and hyponatremia; N17.9 Acute kidney failure, unspecified; N39.0 Urinary tract infection, site not specified; Z20.822 Contact with and (suspected) exposure to COVID-19; I12.9 Hypertensive chronic kidney disease with stage 1 through stage 4 chronic kidney disease, or unspecified chronic kidney disease; K52.9 Noninfective gastroenteritis and colitis, unspecified; E11.22 Type 2 diabetes mellitus with diabetic chronic kidney disease; K21.9 Gastro-esophageal reflux disease without esophagitis; E87.6 Hypokalemia; Z96.652 Presence of left artificial knee joint; I95.1 Orthostatic hypotension; N28.1 Cyst of kidney, acquired; R21 Rash and other nonspecific skin eruption; I48.0 Paroxysmal atrial fibrillation; E86.0 Dehydration; N18.9 Chronic kidney disease, unspecified; E83.42 Hypomagnesemia; E78.5 Hyperlipidemia, unspecified; Y84.6 Urinary catheterization as the cause of abnormal reaction of the patient, or of later complication, without mention of misadventure at the time of the procedure; E03.9 Hypothyroidism, unspecified; Z95.0 Presence of cardiac pacemaker; Z88.8 Allergy status to other drugs, medicaments and biological substances; Z79.01 Long term (current) use of anticoagulants; Z79.899 Other long term (current) drug therapy; Z98.890 Other specified postprocedural states
CPT/HCPCS: 36415; 36416; 36569; 71045; 74177; 76770; 80048; 80053; 80061; 80202; 81003; 81015; 82553; 82570; 83605; 83735; 83930; 83935; 84100; 84133; 84156; 84300; 84443; 84484; 84540; 84560; 85025; 86140; 87040; 87077; 87086; 87186; 87324; 87449; 93005; 93010; 93312; 94760; 96365; 96367; C1751; J0692; J0696; J2405; J2704; J3370; J3475; J3480; J3490; J7050; J7120; U0003; U0005

== ENCOUNTER 2021-12-29 12:56 | Outpatient (CLI) | payer MEDICARE | END 2021-12-29 12:57 | disposition home or self-care (01) | LOC: CSHWCC 12:56 | PROVIDERS: ATTEND Nurse Practitioner Family | DX: T81.89XD Other complications of procedures, not elsewhere classified, subsequent encounter (principal) | CPT/HCPCS: 17250; 97139; G0463; 99203 ==

== ENCOUNTER 2022-01-12 10:00 | Outpatient (CLI) | payer MEDICARE | END 2022-01-12 10:01 | disposition home or self-care (01) | LOC: CSHWCC 10:00 | PROVIDERS: ATTEND Nurse Practitioner Family | DX: T81.89XD Other complications of procedures, not elsewhere classified, subsequent encounter (principal) ==

== ENCOUNTER 2022-01-26 10:27 | Outpatient (CLI) | payer MEDICARE | END 2022-01-26 10:28 | disposition home or self-care (01) | LOC: CSHWCC 10:27 | PROVIDERS: ATTEND Nurse Practitioner Family | DX: T81.89XD Other complications of procedures, not elsewhere classified, subsequent encounter (principal) ==

== ENCOUNTER 2022-02-17 13:22 | Outpatient (CLI) | payer MEDICARE | END 2022-02-17 13:23 | disposition home or self-care (01) | LOC: CSHSPEC 13:22 | PROVIDERS: ATTEND Nurse Practitioner Family | DX: M54.12 Radiculopathy, cervical region (principal); M47.812 Spondylosis without myelopathy or radiculopathy, cervical region; M48.02 Spinal stenosis, cervical region | CPT/HCPCS: 71045; 72141 ==

== ENCOUNTER 2022-04-27 13:47 | Outpatient (CLI) | payer MEDICARE | END 2022-04-27 13:48 | disposition home or self-care (01) | LOC: CSHLAB 13:47 | PROVIDERS: ATTEND Internal Medicine Gastroenterology | DX: Z20.822 Contact with and (suspected) exposure to COVID-19 (principal) | CPT/HCPCS: 87811 ==

== ENCOUNTER 2022-05-02 09:21 | Day surgery (SDC) | payer MEDICARE ==
[2022-04-28 12:45] VITALS: BMI 24.1
[2022-05-02] MEDS ORDERED: PROPOFOL 20 ML ONE (11:52)
[2022-05-02] MEDS ORDERED: Midazolam HCl 2 mg/2 ml Vial ONE (11:53)
== END 2022-05-02 12:34 | disposition home or self-care (01) ==
LOC: CSHSDC 09:21
PROVIDERS: ATTEND Internal Medicine Gastroenterology
PROC: 0DB58ZX Excision of Esophagus, Via Natural or Artificial Opening Endoscopic, Diagnostic (ICD-10-PCS; principal; 2022-05-02)
DX: K22.70 Barrett's esophagus without dysplasia (principal); K21.00 Gastro-esophageal reflux disease with esophagitis, without bleeding; K29.70 Gastritis, unspecified, without bleeding; K25.9 Gastric ulcer, unspecified as acute or chronic, without hemorrhage or perforation; R63.4 Abnormal weight loss; I10 Essential (primary) hypertension; E78.2 Mixed hyperlipidemia; I95.1 Orthostatic hypotension; E11.9 Type 2 diabetes mellitus without complications; E03.9 Hypothyroidism, unspecified; I45.10 Unspecified right bundle-branch block; I48.0 Paroxysmal atrial fibrillation; Z20.822 Contact with and (suspected) exposure to COVID-19; Z79.01 Long term (current) use of anticoagulants; Z79.899 Other long term (current) drug therapy; Z88.5 Allergy status to narcotic agent; Z95.0 Presence of cardiac pacemaker; Z98.890 Other specified postprocedural states
CPT/HCPCS: 88305; J2250; J2704